=== PATIENT | male | born 1980 | race Caucasian/White ===

== ENCOUNTER 2017-12-01 14:35 | Emergency (ER) | payer SELFPAY ==
[~2017-12-01] VITALS: Ht 165.1 cm; Wt 78.0 kg
[~2017-12-01 14:35] MED LIST: ACHD5005 PO; CYCL10TA9 PO; HYDR1CAP2 PO; IBP800T PO; NAPR-243 PO; SULF1TAB38 PO
[2017-12-01] MEDS ORDERED: TETANUS,DIPTH,PERTUSS P/F (BOOSTRIX) 0.5 ML VIAL IM STA (15:06)
[2017-12-01] MEDS ORDERED: fentaNYL INJECTION 100 MCG/2 ML AMP IVP STA (15:06)
--- NOTE | 2017-12-01 15:10 | ED Head Injury ---
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 LACERATION TO UPPER LIP. FAMILY WAS TOLD HE WAS KNOCKED OUT. ON ADMIT TO ED ALERT ANSWER QUESTIONS WITHOUT PROBLEM History of Present Illness Date Seen by Provider: Dec 01, 2017 Time Seen by Provider: 15:00 Initial Comments 37-year-old male was playing baseball when he was hit in the left upper and lower lips. He denies losing consciousness but did fall forward secondary to the pain. He is able to recall all events from the time he was hit. He is alert and oriented complaining of a headache. He denies neck pain. He denies previous dental trauma. He does report feeling as though his left upper middle teeth are loose. Occurred: just prior to arrival Location: other (lips) Method of Injury: direct blow Loss of Consciousness: no loss of consciousness Associated Systoms: Headaches; No Nausea/Vomiting Allergies and Home Medications Allergies Coded Allergies: Bee Sting Kit (Verified Allergy, Mild, 12/26/08) Home Medications Cephalexin 500 Mg Capsule, 500 MG PO TID Prescribed by: JAMAL ROCHE on 12/01/17 1635 Hydrocodone Bit/Acetaminophen 1 Each Tablet, 1 EACH PO Q6H PRN Prescribed by: CAESAR DAVIS on 02/16/13 182 Tramadol HCl 50 Mg Tablet, 50 MG PO Q8H PRN for PAIN-MILD TO MODERATE Prescribed by: JAMAL ROCHE on 12/01/17 1635 Trimethoprim/Sulfamethoxazole 1 Ea Tablet, 1 EA PO BID Prescribed by: CAESAR DAVIS on 02/16/13 1827 Patient Home Medication List Home Medication List Reviewed: Yes Review of Systems Constitutional: no symptoms reported, see HPI Ears, Nose, Mouth, Throat: see HPI, loose teeth Respiratory: no symptoms reported, see HPI All Other Systems Reviewed Negative Unless Noted: Yes Past Hdzaxvl-Epzzqx-Ghyuoy Hx Past Med/Social Hx: Reviewed Nursing Past Med/Soc Hx Patient Social History Alcohol Use: Denies Use Recreational Drug Use: No Smoking Status: Current Everyday Smoker Recent Foreign Travel: No Contact w/Someone Who Travel: No Recent Infectious Disease Expo: No Immunizations Up To Date Tetanus Booster (TDap): Less than 5yrs Date of Influenza Vaccine: Feb 26, 2012 Past Medical History Surgeries: Yes Respiratory: No Cardiac: No Neurological: No Gastrointestinal: No Musculoskeletal: No Endocrine: No Cancer: No Integumentary: No Family Medical History No Pertinent Family Hx Physical Exam Vital Signs Vital Signs - First Documented 12/01/17 14:36 Temp 97.6 Pulse 96 Resp 18 B/P (MAP) 128/91 (103) Pulse Ox 98 Capillary Refill : Less Than 3 Seconds Height, Weight, BMI Height: 5', 5.00" Weight: 172lbs oz, 78.575722la Method:Stated ,BMI General Appearance: WD/WN, no apparent distress HEENT: PERRL/EOMI, normal ENT inspection, TMs normal, pharynx normal, other ( left upper and lower lip with lacerations noted, trace active bleeding. Left upper middle teeth slightly loose but intact.) Neck: non-tender, full range of motion, supple, normal inspection Cardiovascular: normal peripheral pulses, regular rate, rhythm Respiratory: chest non-tender, lungs clear, normal breath sounds Psychiatric: alert, oriented x 3, depressed affect Crainal Nerves: normal hearing, normal speech, PERRL Motor/Sensory: no motor deficit, no sensory deficit Skin: normal color, warm/dry Adrienne Coma Score Best Eye Response: (4) Open Spontaneously Best Verbal Response: (5) Oriented Best Motor Response: (6) Obeys Commands Casey Total: 15 Procedures/Interventions Wound Location: Other (left upper lip) Wound Length (cm): 4 Wound's Depth, Shape: flap Wound Explored: clean Irrigated w/ Saline (ccs): 500 Betadine Prep?: Yes Anesthesia: 1% Lidocaine Volume Anesthetic (ccs): 3 Suture: Vicryl Suture Size: 4-0 Number of Sutures: 3 Sterile Dressing Applied?: No Progress Patient encouraged to irrigate with a 50-50 mixture of peroxide and water several times a day and after eating or drinking. Progress/Results/Core Measures Results/Orders My Orders Orders - JAMAL ROCHE Pertuss(Arelis),Tet Adult (Boostrix (12/01/17 15:06) Fentanyl Injection (Sublimaze Injection (12/01/17 15:06) Ct Head/Maxillofacial Wo (12/01/17 15:06) Fentanyl Injection (Sublimaze Injection (12/01/17 15:11) Lidocaine 1% Inj 20 Ml (Xylocaine 1% Inj (12/01/17 16:15) Medications Given in ED Current Medications Medications Dose Ordered Sig/Arnel Route Start Time Stop Time Status Last Admin Dose Admin Lidocaine HCl 20 ml ONCE ONCE INJ 12/01/17 16:15 12/01/17 16:16 DC 12/01/17 16:27 20 ML Vital Signs/I&O 12/01/17 12/01/17 14:36 16:37 Temp 97.6 Pulse 96 93 Resp 18 18 B/P (MAP) 128/91 (103) 105/89 Pulse Ox 98 96 Blood Pressure Mean: 103 Progress Progress Note : Time: 15:00 Progress Note Initial assessment completed, no maxillary or mandible tenderness. No tenderness or instability at the TMJ. Recommended CT head and maxillofacial. Fentanyl 75 g IM for headache and pain. Tetanus booster. 1545 CT negative for acute findings. Irrigated wounds to left upper and lower lip with 500 ML's of sterile saline. Wounds well approximated. 1615 discharge instructions and return precautions reviewed with the patient. He understands importance of following up with his dentist early next week. Diagnostic Imaging Diagonstic Imaging: CT Plain Films/CT/US/NM/MRI: facial bones, head Comments NAME: JULI PERRY [facility] REC#: [id number] PT STATUS: REG ER : 1980 PHYSICIAN: JAMAL ROCHE ADMIT DATE: 12/01/17/ER Draft Date of Exam:12/01/17 CT HEAD/MAXILLOFACIAL WO PROCEDURE: CT head and maxillofacial without contrast. TECHNIQUE: Multiple contiguous axial images were obtained through the head and facial bones without the use of intravenous contrast. DATE: 12/01/2017. COMPARISON: CT head 09/13/2010. INDICATION: 37-year-old male, hit in left side of face with baseball. Headache. Swelling and laceration of the left upper lip. FINDINGS: The ventricles and cerebral spinal fluid spaces are of normal size and configuration for the patient's age. There is no mass effect or midline shift. There is no acute intracranial hemorrhage. There is no abnormal extra-axial fluid collection. The temporomandibular joints are normally aligned, bilaterally. The mandible is intact. There is no identified nasal bone fracture. The bony nasal septum is near midline. There is no air-fluid level within the paranasal sinuses. There is no identified acute maxillofacial bone fracture. The visualized portions of the mastoid air cells and middle ears are well aerated. There is pneumatization of the Yoandy apices. The globes are intact. There is no retro-orbital hematoma. There is soft tissue swelling at the level of the lips. There is no identified radiopaque foreign body. IMPRESSION: 1. No identified acute intracranial abnormality. 2. No maxillofacial bone fracture. 3. Soft tissue swelling at the level of the lips. No radiopaque foreign body. Dictated on workstation # [id number] Dict: 12/01/17 1553 Trans: 12/01/17 1558 [facility] [id number] Interpreted by: VANNA FUENTES MD Electronically signed by: Departure Impression Primary Impression: Lip laceration Qualified Codes: S01.511A - Laceration without foreign body of lip, initial encounter Additional Impression: Dental trauma Qualified Codes: S09.93XA - Unspecified injury of face, initial encounter Disposition: HOME, SELF-CARE Condition: Improved Departure-Patient Inst. Decision time for Depature: 16:15 Referrals: MARLEEN VALLE MD (PCP/Family) Primary Care Physician Patient Instructions: Dental Pain (DC), Laceration Repair With Stitches (DC) Add. Discharge Instructions: Ice packs to lip 20 minutes every 2 hours while awake. May eat liquid to soft foods as tolerated, try to keep food on the right side of your mouth. After eating or drinking, rinse her mouth with a combination of peroxide and water 50/50 dilution. Schedule appointment to see your dentist on Sunday or Sunday. Take antibiotic as prescribed. You may use Tylenol 650 mg alternating with ibuprofen 600 mg every 4 hours for pain. Take your tramadol for more severe pain not managed by Tylenol or ibuprofen. Follow-up with your primary care provider in 2-3 days if symptoms are not improving, sooner if symptoms worsen. Return to emergency department for new, urgent health care needs. All discharge instructions reviewed with patient and/or family. Voiced understanding. Scripts Tramadol HCl (Tramadol HCl) 50 Mg Tablet 50 MG PO Q8H PRN for PAIN-MILD TO MODERATE, #12 TAB 0 Refills Prov: JAMAL ROCHE 12/01/17 Cephalexin (Keflex) 500 Mg Capsule 500 MG PO TID, #21 CAP 0 Refills Prov: JAMAL ROCHE 12/01/17 Work/School Note: Work Release Form Date Seen in the Emergency Department: Dec 01, 2017 Restrictions: Need Release from Doctor Copy Copies To 1: MARLEEN VALLE MD, AMY ARNP Dec 01, 2017 15:10
[2017-12-01] MEDS ORDERED: fentaNYL INJECTION 100 MCG/2 ML AMP IM STA (15:11)
--- NOTE | 2017-12-01 15:59 | Diagnostic Imaging Report ---
PROCEDURE: CT head and maxillofacial without contrast. TECHNIQUE: Multiple contiguous axial images were obtained through the head and facial bones without the use of intravenous contrast. DATE: 12/01/2017. COMPARISON: CT head 09/13/2010. INDICATION: 37-year-old male, hit in left side of face with baseball. Headache. Swelling and laceration of the left upper lip. FINDINGS: The ventricles and cerebral spinal fluid spaces are of normal size and configuration for the patient's age. There is no mass effect or midline shift. There is no acute intracranial hemorrhage. There is no abnormal extra-axial fluid collection. The temporomandibular joints are normally aligned, bilaterally. The mandible is intact. There is no identified nasal bone fracture. The bony nasal septum is near midline. There is no air-fluid level within the paranasal sinuses. There is no identified acute maxillofacial bone fracture. The visualized portions of the mastoid air cells and middle ears are well aerated. There is pneumatization of the Yoandy apices. The globes are intact. There is no retro-orbital hematoma. There is soft tissue swelling at the level of the lips. There is no identified radiopaque foreign body. IMPRESSION: 1. No identified acute intracranial abnormality. 2. No maxillofacial bone fracture. 3. Soft tissue swelling at the level of the lips. No radiopaque foreign body. Dictated by: Dictated on workstation # [id number]
[2017-12-01] MEDS ORDERED: LIDOCAINE 1% INJ 20 ML 20 ML VIAL INJ ONE (16:15)
[2017-12-01] MEDS ORDERED: CEPH-507 PO (16:35)
[2017-12-01] MEDS ORDERED: TRAM50TA2 PO (16:35)
[2017-12-01 16:37] VITALS: BP 105/89
== END 2017-12-01 16:54 | disposition home or self-care (01) ==
LOC: EDUNIT# 14:35 → ER 14:36
DX: S01.511A Laceration without foreign body of lip, initial encounter (principal); R40.2142 Coma scale, eyes open, spontaneous, at arrival to emergency department; R40.2252 Coma scale, best verbal response, oriented, at arrival to emergency department; R40.2362 Coma scale, best motor response, obeys commands, at arrival to emergency department; F17.200 Nicotine dependence, unspecified, uncomplicated; Z23 Encounter for immunization; W21.03XA Struck by baseball, initial encounter; Y93.64 Activity, baseball
CPT/HCPCS: 70450; 70486; 90471; 90715; 96372

== ENCOUNTER 2018-09-11 05:07 | Emergency (ER) | payer SELFPAY ==
[~2018-09-11 05:07] MED LIST changes: +CEPH-507 PO; +TRAM50TA2 PO
--- OUTSIDE RECORDS SUMMARY | 2018-09-11 05:14 | XMS REPORT ---
Author Author MARLEEN SON [facility] Address [address] [place] [address] Care Team Providers Care Client Finance Analyst Name Role Phone MARLEEN SON Unavailable PROBLEMS Type Condition ICD9-CM Code SAR69-KD Code Onset Dates Condition Status SNOMED Code Problem Lipoma of other specified sites 214.8 Active 96815053 Problem Cellulitis and abscess of trunk 682.2 Active 404055903 Problem Encounter for change or removal of nonsurgical wound dressing V58.30 Active 907403619 Problem Encounter for change or removal of surgical wound dressing V58.31 Active 50434077 ALLERGIES No Known Allergies ENCOUNTERS Encounter Location Date Diagnosis [place] [id number] [place] [phone] Jan, Encounter for immunization Z23 [facility] [address] [place] [phone] Dec, [facility] [address] [place] [address] Dec, [facility] [address] [place] [address] Nov, Dental examination Z01.20 [facility] [address] [place] [phone] Nov, [place] [id number] [place] [phone] Nov, [place] [id number] [place] [address] 5361 Nov, Dental examination Z01.20 [place] [address] [place] [id number] [place] [address] 79[address] Oct, Abscess of groin, left L02.214 [place] [id number] [place] [address]3689- 3450 Oct, [facility] [id number] [place] [address]21[address] 5169 Aug, [facility] [id number] [place] [address] 60886- 6400 Jun, [facility] [id number] [place] [address] 57689- 6667 Jun, [facility] [address] [address] Mar, Acute midline thoracic back pain M54.6 [facility] [address] [address] Mar, [facility] [address] [id number] Mar, [facility] [address] [id number] Feb, Encounter for dental exam and cleaning w/o abnormal findings Z01.20 [facility] [address] [id number] Feb, Encounter for dental examination Z01.20 [facility] [id number] [place] [address] 85[address] Feb, Bronchitis J40 [facility] [id number] [place] [address]- 6[address] Feb, Bronchitis J40 [facility] [id number] [place] [address] 25053- 5407 Aug, [facility] [id number] [place] [phone] Aug, Fever, unspecified fever cause R50.9 and Acute nasopharyngitis (common cold) J00 [facility] [id number] [place] [address] 78435- 8849 Aug, [facility] [address] [address] Apr, Dental examination Z01.20 [facility] [id number] [place] [address] 93726- 5321 Mar, [facility] [address] [place] [id number] [place] [address] 99060- 6462 Nov, [facility] [address] [facility] [id number] [place] [address] 70369- 4568 Nov, Sebaceous cyst L72.3 [facility] [address] [facility] [id number] [place] [address] 72655- 3978 Nov, [facility] [id number] [place] [address] 32152- 3312 Oct, [facility] [id number] [place] [address] 27394- 9226 Jul, [facility] [id number] [place] [address] 08027- 7660 Jun, [facility] [id number] [place] [address] 11843- 3332 Jun, [facility] [id number] [place] [address] 76630- 6491 May, [facility] [id number] [place] [address] 56624- 2158 Mar, [facility] [address] [place] [address] Jan, Dental examination V72.2 [facility] [id number] [place] [address] 36646- 3857 Jan, [facility] [id number] [place] [address] 49459- 9105 Jan, [facility] [address] [place] [address] Dec, [facility] [id number] [place] [address] 33049- 9359 Dec, Lumbar neuritis 724.4 [facility] [address] [place] [address] Dec, Lumbar radicular pain 724.4 [facility] [address] [place] [address] Aug, [facility] [address] [place] [address] Aug, [facility] [address] [place] [address] Apr, [facility] [id number] [place] [address] 21149- 1394 Apr, [facility] [id number] [place] [address] 69241- 5912 Aug, [facility] [id number] [place] [address] 68446- 0377 Aug, [facility] [address] [place] [address] Jan, [facility] [id number] [address] Jan, [facility] [address] [place] [address] Jul, [facility] [address] [place] [address] Jul, IMMUNIZATIONS No Known Immunizations SOCIAL HISTORY Never Assessed REASON FOR VISIT [facility] PLAN OF CARE Activity Details Follow Up to be determined. going to [facility] for implant consult. Reason: VITAL SIGNS MEDICATIONS Medication Instructions Dosage Frequency Start Date End Date Duration Status ibuprofen 1 tab Not-Taking Morris 5-325 MG Orally every 6 hrs 1 tablet as needed 6h Aug, Not-Taking Cyclobenzaprine HCl 10 mg Orally 2 times a day 1 tablet as needed 12h 20 Mar, 2017 Not-Taking PredniSONE Not-Taking Chantix 1 MG Orally Twice a day 1 tablet 12h 30 Mar, 2015 Not-Taking Amoxicillin 500 MG Orally 4 times a day 2 capsules stat and then take 1 capsule 6h 10 days Active Zofran 4 MG Orally 3 times a day 1 tablet 8h Jun, Not-Taking RESULTS No Results PROCEDURES Procedure Date Ordered Result Body Site LTD ORAL EVALUATION - PROBLEM FOCUS December 25, 2017 INTRAORL-PERIAPICAL 1 FILM [id number] December 25, 2017 Billing Notes on claim December 25, 2017 [employer] Employee/Board adjustment December 25, 2017 INSTRUCTIONS MEDICATIONS ADMINISTERED No Known Medications MEDICAL (GENERAL) HISTORY Type Description Date Medical History SI joint disfunction Medical History Bronchitis Surgical History eye surgery at 8 months old
--- OUTSIDE RECORDS SUMMARY | 2018-09-11 05:14 | XMS REPORT ---
Author Author TATIANA NUÑEZ Organization [facility] Address [address] [place] [address] Care Team Providers Care Logging Crew Foreman Name Role Phone TATIANA NUÑEZ Unavailable PROBLEMS Type Condition ICD9-CM Code VDQ68-WF Code Onset Dates Condition Status SNOMED Code Problem Lipoma of other specified sites 214.8 Active 08165130 Problem Cellulitis and abscess of trunk 682.2 Active 974742048 Problem Encounter for change or removal of nonsurgical wound dressing V58.30 Active 015239096 Problem Encounter for change or removal of surgical wound dressing V58.31 Active 90686424 ALLERGIES No Information ENCOUNTERS Encounter Location Date Diagnosis [place] [id number] [place] [address]180- 8013 Jan, Encounter for immunization Z23 [address] [place] [address] Dec, [address] [place] [address] Dec, [address] [address] Nov, Dental examination Z01.[address] [place] [address] Nov, [place] [id number] [place] [address] 25141- 8795 Nov, [place] [id number] [place] [address] 27039- 7270 Nov, Dental examination Z01.20 [place] [address] [place] [id number] [place] [address] 84460- 2355 Oct, Abscess of groin, left L02.214 [address] [place] [address] 73376- 2585 Oct, [facility] [address] [place] [id number] [place] [address] 99725- 5810 Aug, [facility] [address] 35337- 7100 Jun, [facility] [address] [place] [id number] [place] [address] 65833- 0984 Jun, [facility] [address] [address] Mar, Acute midline thoracic back pain M54.6 [facility] [address] 20077- 9308 Mar, [facility] [address] [id number] Mar, [facility] [address] [id number] Feb, Encounter for dental exam and cleaning w/o abnormal findings Z01.20 [facility] [address] [place] [id number] [place] [address] [id number] Feb, Encounter for dental examination Z01.20 [facility] [address] [place] [id number] [place] [address] 49577- 3972 Feb, Bronchitis J40 [facility] [address] [place] [id number] [place] [address] 62848- 9935 Feb, Bronchitis J40 [facility] [address] [place] [id number] [place] [address] 93442- 6630 Aug, [facility] [address] [place] [id number] [place] [address] 99511 -8758 Aug, Fever, unspecified fever cause R50.9 and Acute nasopharyngitis (common cold) J00 [facility] [address] [place] [id number] [place] [address] 67633- 3265 Aug, [facility] [address] 03967- 6883 Apr, Dental examination Z01.20 [facility] [address] [address] 9199 Mar, [facility] [address] [place] [address] 67341- 5642 Nov, [facility] [address] [place] [id number] [place] [address] 99003- 8510 Nov, Sebaceous cyst L72.3 [facility] [address] [place] [id number] [place] [address] 14837- 3920 Nov, [facility] [address] [place] [id number] [place] [address] 73766- 1228 Oct, [facility] [address] [place] [id number] [place] [address] 39000- 2020 Jul, [facility] [address] [place] [id number] [place] [address] 09371- 7044 Jun, [facility] [address] [place] [id number] [place] [address] 24263- 9606 Jun, [facility] [address] [place] [id number] [place] [address] 17012- 2636 May, [facility] [address] [place] [id number] [place] [address] 98757- 3382 Mar, [facility] [address] [place] [address] Jan, Dental examination V72.2 [facility] [address] [address]- 1372 Jan, [facility] [address] [place] [id number] [place] [address] 86891- 7004 Jan, [facility] [address] [place] [address] 93317- 2434 Dec, [facility] [address] [place] [address] 67471- 7239 Dec, Lumbar neuritis 724.4 [facility] [address] [address]- 4142 Dec, Lumbar radicular pain 724.4 [facility] [address] [facility] [id number] [address]- 2414 14 Aug, 2014 [facility] [address] 6857 Aug, [facility] [address] [address]- 7104 Apr, [facility] [address] 7920 Apr, [facility] [address] [address]- 1278 Aug, [facility] [address] 5219 Aug, [facility] [address], [place] [address]- 5744 Jan, [facility] [address]- 0371 Jan, [facility] [address]- 7530 Jul, [facility] [address] [place] [id number] [address]- 4306 Jul, IMMUNIZATIONS Vaccine Route Administration Date Status FLULAVAL QUAD 0.5ML (6 MO & UP) 2017 IM Intramuscular Feb 22, 2018 Administered SOCIAL HISTORY Never Assessed REASON FOR VISIT flu shot PLAN OF CARE VITAL SIGNS MEDICATIONS Unknown Medications RESULTS No Results PROCEDURES Procedure Date Ordered Result Body Site FLULAVAL QUAD 0.5ML (6 MO AND UP) 2017Feb 22, 2018 SINGLE IMMUNIZATION ADMIN Feb 22, 2018 INSTRUCTIONS MEDICATIONS ADMINISTERED No Known Medications MEDICAL (GENERAL) HISTORY Type Description Date Medical History SI joint disfunction Medical History Bronchitis Surgical History eye surgery at 8 months old
--- OUTSIDE RECORDS SUMMARY | 2018-09-11 05:14 | XMS REPORT ---
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 [address] [place] [address] Dec, [address] [place] [address] Dec, [address] [address] Nov, Dental examination Z01.[address] [address] Nov, [place] [address] [place] [id number] [place] [address] 16383- 1989 Nov, [place] [id number] [place] [address] 48347- 9518 Nov, Dental examination Z01.20 [place] [address] [place] [id number] [place] [address] 24792- 5323 Oct, Abscess of groin, left L02.214 [place] [id number] [place] [address] 37035- 3826 Oct, [facility] [address] [place] [id number] [place] [address] 68853- 1747 Aug, [facility] [address] [place] [id number] [place] [address] 82796- 9547 Jun, [facility] [address] [place] [id number] [place] [address] 13381- 0749 Jun, [facility] [address] [address]2897 Mar, Acute midline thoracic back pain M54.6 [facility] [address] 04456- 6901 Mar, [facility] [address] [id number] Mar, [facility] [address] [id number] Feb, Encounter for dental exam and cleaning w/o abnormal findings Z01.20 [facility] [address] [place] [id number] [place] [address] [id number] Feb, Encounter for dental examination Z01.20 [facility] [address] [place] [id number] [place] [address] 44374- 3706 Feb, Bronchitis J40 [facility] [address] [place] [id number] [place] [address] 12233- 0015 Feb, Bronchitis J40 [facility] [address] [place] [id number] [place] [address] 00640- 4792 Aug, [facility] [address] [place] [id number] [place] [address] 52903 -9506 Aug, Fever, unspecified fever cause R50.9 and Acute nasopharyngitis (common cold) J00 [facility] [address] [place] [id number] [place] [address] 63982- 7297 Aug, [facility] [address] [place] [address]- 6473 Apr, Dental examination Z01.20 [facility] [address] [place] [id number] [place] [address] 03893- 4321 Mar, [facility] [address] [place] [id number] [place] [address] 82550- 0536 Nov, [facility] [address] [place] [id number] [place] [address] 55693- 9828 Nov, Sebaceous cyst L72.3 [facility] [address] [facility] [id number] [place] [address] 80992- 7924 Nov, [facility] [address] [place] [id number] [place] [address] 95945- 8611 Oct, [facility] [address] [place] [id number] [place] [address] 92122- 8385 Jul, [facility] [address] [place] [id number] [place] [address] 48237- 9955 Jun, [facility] [address] [place] [address] 61269- 1254 Jun, [facility] [address] [place] [id number] [place] [address] 62895- 4971 May, [facility] [address] [place] [address] 93482- 4378 Mar, [facility] [address] [place] [address] Jan, Dental examination V72.2 [facility] [address], [place] [address]- 3743 Jan, [facility] [address] [place] [id number] [place] [address] 36040- 0557 Jan, [facility] [address], [place] [address]- 3057 Dec, [facility] [address] [place] [id number] [place] [address] 13269- 1772 Dec, Lumbar neuritis 724.4 [facility] [address], [place] [address]- 1575 Dec, Lumbar radicular pain 724.4 [facility] [address], [place] [address]- 1132 14 Aug, 2014 [facility] [address] [place] [id number] [place] [address] 28931- 2267 Aug, [facility] [address] [place] [address] 43051- 7973 Apr, [facility] [address] [place] [id number] [place] [address] 53801- 8324 Apr, [facility] [address], [place] [address]- 7263 Aug, [facility] [address] [place] [id number] [place] [address] 02703- 9868 Aug, [facility] [address], [place] [address]- 7730 Jan, [facility] [address] [place] [address] 30255- 8487 Jan, [facility] [address], [place] [address]- 1329 Jul, [facility] [address], [place] [address]- 2605 Jul, IMMUNIZATIONS No Known Immunizations SOCIAL HISTORY Never Assessed REASON FOR VISIT EMR-[facility] PLAN OF CARE VITAL SIGNS MEDICATIONS Medication Instructions Dosage Frequency Start Date End Date Duration Status Bactrim DS 800-160 mg 1 tablet by Oral route 2 times per day for 10 day(s) Apr, Active RESULTS No Results PROCEDURES No Known procedures INSTRUCTIONS MEDICATIONS ADMINISTERED No Known Medications MEDICAL (GENERAL) HISTORY Type Description Date Medical History SI joint disfunction Medical History Bronchitis Surgical History eye surgery at 8 months old
--- OUTSIDE RECORDS SUMMARY | 2018-09-11 05:14 | XMS REPORT ---
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 28301949 Problem Cellulitis and abscess of trunk 682.2 Active 331409470 Problem Encounter for change or removal of nonsurgical wound dressing V58.30 Active 988750579 Problem Encounter for change or removal of surgical wound dressing V58.31 Active 43680387 ALLERGIES No Information ENCOUNTERS Encounter Location Date Diagnosis [address] [address]- 6311 Mar, [place] [id number] [place] [address] 81062- 7348 Jan, Encounter for immunization Z23 [facility] [address] [place] [address] Dec, [address] [address] Dec, [address] [address] Nov, Dental examination Z01.[address] [address] Nov, [place] [id number] [place] [address] 56178- 0732 Nov, [place] [id number] [place] [address] 27310- 9774 Nov, Dental examination Z01.20 [place] [id number] [place] [address] 66919- 1761 Oct, Abscess of groin, left L02.214 [facility] [address] [place] [id number] [place] [address] 37218- 9295 Oct, [facility] [address] 57954- 8189 Aug, [facility] [address] 33726- 2072 Jun, [facility] [address] 46240- 5963 Jun, [facility] [address] 59046 -5063 Mar, Acute midline thoracic back pain M54.6 [place] [address] 28540- 3131 Mar, [facility] [address] [id number] Mar, [facility] [address] [id number] Feb, Encounter for dental exam and cleaning w/o abnormal findings Z01.20 [facility] [address] [id number] Feb, Encounter for dental examination Z01.20 [facility] [address] [place] [id number] [place] [address] 60257- 5981 Feb, Bronchitis J40 [facility] [address] 49999- 7277 Feb, Bronchitis J40 [facility] [address] [place] [id number] [place] [address] 15766- 9539 Aug, [facility] [address] [place] [id number] [place] [address] 76798 -1311 Aug, Fever, unspecified fever cause R50.9 and Acute nasopharyngitis (common cold) J00 [facility] [address] 78878- 0290 Aug, [facility] [address], [place] [address]- 1520 Apr, Dental examination Z01.20 [facility] [address] [place] [address] 15360- 8956 Mar, [facility] [address] [place] [address] 35906- 2042 Nov, [facility] [address] [place] [id number] [place] [address] 14737- 5799 Nov, Sebaceous cyst L72.3 [facility] [address] [place] [id number] [place] [address] 92183- 0212 Nov, [facility] [address] [place] [id number] [place] [address] 96553- 2036 Oct, [facility] [address] [place] [id number] [place] [address] 90879- 6073 Jul, [facility] [address] [place] [address] 79969- 4834 Jun, [facility] [address] [place] [id number] [place] [address] 23176- 1316 Jun, [facility] [address] [place] [address] 79303- 7094 May, [facility] [address] [place] [address] 58109- 7655 Mar, [facility] [address] [facility] [place] [address] Jan, Dental examination V72.2 [facility] [address] [place] [id number] [place] [address] 67655- 5610 Jan, [facility] [address] [place] [address] 88994- 9562 Jan, [facility] [address] [place] [address] 82614- 9188 Dec, [facility] [address], [place] [address]- 1565 Dec, Lumbar neuritis 724.4 [facility] [address], [place] [address]- 0528 Dec, Lumbar radicular pain 724.4 [facility] [address], [place] [address]- 6929 Aug, [facility] [address] [address]- 9133 Aug, [facility] [id number] [place] [address] 54855- 2867 Apr, [facility] [address] [place] [address] 73945- 5021 Apr, [facility] [address] [place] [id number] [place] [address] 13876- 5870 Aug, [facility] [address] [place] [address] 697232- 6013 Aug, [facility] [address] [place] [address] 859832- 5858 Jan, [facility] [address], [place] [address]- 1571 Jan, [facility] [address] 7064 Jul, [facility] [address]- 0659 Jul, IMMUNIZATIONS No Known Immunizations SOCIAL HISTORY Never Assessed REASON FOR VISIT bronchitis PLAN OF CARE VITAL SIGNS MEDICATIONS Medication Instructions Dosage Frequency Start Date End Date Duration Status PredniSONE 20 mg Orally Once a day 2 tablets 24h Mar, Mar, 5 days Active Zithromax Z-Enrrique 250 MG Orally Once a day 2 tablets on the first day, then 1 tablet daily for 4 days 24h Mar, Mar, 5 day(s) Active RESULTS No Results PROCEDURES No Known procedures INSTRUCTIONS MEDICATIONS ADMINISTERED No Known Medications MEDICAL (GENERAL) HISTORY Type Description Date Medical History SI joint disfunction Medical History Bronchitis Surgical History eye surgery at 8 months old
--- OUTSIDE RECORDS SUMMARY | 2018-09-11 05:15 | XMS REPORT ---
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 90802338 Problem Cellulitis and abscess of trunk 682.2 Active 619524360 Problem Encounter for change or removal of nonsurgical wound dressing V58.30 Active 236538712 Problem Encounter for change or removal of surgical wound dressing V58.31 Active [id number] ALLERGIES No Information ENCOUNTERS Encounter Location Date Diagnosis [facility] [address] [place] [address] Dec, [facility] [address] [place] [address] Dec, [address] [place] [address] Nov, Dental examination Z01.[address] [place] [address] Nov, [place] [address] [place] [address] 80733- 1377 Nov, [place] [address] [place] [id number] [place] [address] 70090- 5772 Nov, Dental examination Z01.20 [place] [address] [place] [address] 20748- 4977 Oct, Abscess of groin, left L02.214 [place] [address] [place] [address] 60444- 4213 Oct, [place] [address] [place] [address] 22392- 0884 Aug, [facility] [address] [place] [address] 56913- 5672 Jun, [facility] [id number] [place] [address] 36181- 6481 Jun, [facility] [id number] [place] [address]34 -5844 Mar, Acute midline thoracic back pain M54.6 [facility] [id number] [place] [address] 06490- 2365 Mar, [facility] [address] [place] [id number] [place] [address] [id number] Mar, [facility] [address] [id number] Feb, Encounter for dental exam and cleaning w/o abnormal findings Z01.20 [facility] [address] [id number] Feb, Encounter for dental examination Z01.20 [facility] [id number] [place] [address] 75948- 9087 Feb, Bronchitis J40 [facility] [id number] [place] [address] 25857- 9297 Feb, Bronchitis J40 [facility] [id number] [place] [address] 83764- 7559 Aug, [facility] [id number] [place] [address]49 -0667 Aug, Fever, unspecified fever cause R50.9 and Acute nasopharyngitis (common cold) J00 [facility] [id number] [place] [address] 19653- 0891 Aug, [facility] [id number] [place] [address] 82454- 0842 Apr, Dental examination Z01.20 [facility] [address] [address]- 1240 Mar, [facility] [address] [place] [address] 23677- 5347 Nov, [facility] [address] [place] [address] 55925- 9613 Nov, Sebaceous cyst L72.3 [facility] [id number] [place] [address] 38185- 7482 Nov, [facility] [id number] [place] [address] 80318- 9166 Oct, [facility] [id number] [place] [address] 68466- 6295 Jul, [facility] [id number] [place] [address] 51076- 4356 Jun, [facility] [id number] [place] [address] 86885- 4249 Jun, [facility] [address] [place] [address] 71733- 8006 May, [facility] [id number] [place] [address] 31354- 2675 Mar, [facility] [address] [place] [address] 24 Jan, 2015 Dental examination V72.2 [facility] [address] [place] [address] 05980- 4710 Jan, [facility] [address] [place] [address] 72365- 6977 Jan, [facility] [id number] [place] [address] 57097- 1135 Dec, [facility] [id number] [place] [address] 74369- 6426 Dec, Lumbar neuritis 724.4 [facility] [address] [place] [address] 49540- 5338 Dec, Lumbar radicular pain 724.4 [facility] [address] [address] 3[address] Aug, [facility] [address] [address]- 9450 Aug, [facility] [address] [address]- 2584 Apr, [facility] [address] [address]- 6165 Apr, [facility] [address] [address]- 6177 Aug, [facility] [address] [address]- 3656 Aug, [facility] [address] [address]- 0904 Jan, [facility] [address] [address]- 3383 Jan, [facility] [address] [address]- 0842 Jul, [facility] [address] [place] [id number] [address]- 8647 Jul, IMMUNIZATIONS No Known Immunizations SOCIAL HISTORY Never Assessed REASON FOR VISIT PLAN OF CARE VITAL SIGNS MEDICATIONS Medication Instructions Dosage Frequency Start Date End Date Duration Status Amoxicillin 500 MG Orally 4 times a day 2 capsules stat and then take 1 capsule 6h 10 days Active RESULTS No Results PROCEDURES No Known procedures INSTRUCTIONS MEDICATIONS ADMINISTERED No Known Medications MEDICAL (GENERAL) HISTORY Type Description Date Medical History SI joint disfunction Medical History Bronchitis Surgical History eye surgery at 8 months old
--- OUTSIDE RECORDS SUMMARY | 2018-09-11 05:15 | XMS REPORT ---
Author Author TATIANA NUÑEZ Organization 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 81475232 Problem Cellulitis and abscess of trunk 682.2 Active 364083296 Problem Encounter for change or removal of nonsurgical wound dressing V58.30 Active 872411061 Problem Encounter for change or removal of surgical wound dressing V58.31 Active [id number] ALLERGIES No Known Allergies ENCOUNTERS Encounter Location Date Diagnosis [facility] [address] [place] [address] Dec, [facility] [address] [place] [address] Dec, [address] [place] [address] Nov, Dental examination Z01.[address] [place] [address] Nov, [place] [id number] [place] [address] 21710- 9726 Nov, [place] [id number] [place] [address] 43576- 6288 Nov, Dental examination Z01.20 [place] [id number] [place] [address] 65384- 7799 Oct, Abscess of groin, left L02.214 [place] [id number] [place] [address] 53682- 3341 Oct, [address] [place] [address] 58916- 7136 Aug, [place] [address] [place] [id number] [place] [address] 48797- 6089 Jun, [facility] [address] 75227- 8436 Jun, [facility] [id number] [place] [address] 90216 -4717 Mar, Acute midline thoracic back pain M54.6 [facility] [address] 05249- 1096 Mar, [facility] [address] [id number] Mar, [facility] [address] [id number] Feb, Encounter for dental exam and cleaning w/o abnormal findings Z01.20 [facility] [address] [id number] Feb, Encounter for dental examination Z01.20 [facility] [address] [id number] [place] [address] 80227- 0767 Feb, Bronchitis J40 [facility] [address] 07783- 1491 Feb, Bronchitis J40 [facility] [address] 31185- 2018 Aug, [facility] [address] [id number] [place] [address] 24846 -4960 Aug, Fever, unspecified fever cause R50.9 and Acute nasopharyngitis (common cold) J00 [facility] [address] [address]1511- 1714 Aug, [facility] [address] 15563- 5452 Apr, Dental examination Z01.20 [facility] [address] 53523- 9107 Mar, [facility] [id number] [place] [address] 47264- 2829 Nov, [facility] [address] [id number] [place] [address] 39250- 5533 Nov, Sebaceous cyst L72.3 [facility] [address] [id number] [place] [address] 18369- 0192 Nov, [facility] [id number] [place] [address] 66984- 9294 Oct, [facility] [id number] [place] [address] 80136- 9268 Jul, [facility] [id number] [place] [address] 63430- [address]374 Jun, [facility] [address] [id number] [place] [address] 46421- 4309 Jun, [facility] [address] [id number] [place] [address] 03824- 6414 May, [facility] [id number] [place] [address] 85342- 7062 Mar, [facility] [address] [place] [address] Jan, Dental examination V72.2 [facility] [address] [id number] [place] [address] 32259- 1952 Jan, [facility] [address] [id number] [place] [address] 42859- 2330 Jan, [facility] [id number] [place] [address] 85703- 4079 Dec, [facility] [id number] [place] [address] 53678- 1593 Dec, Lumbar neuritis 724.4 [facility] [id number] [place] [address] 37977- 9289 Dec, Lumbar radicular pain 724.4 [facility] [address], [place] [address]- 7424 Aug, [facility] [id number], [place] [address]- 9768 Aug, [facility] [address], [place] [address]- 6757 Apr, [facility] [address], [place] [address]- 5706 Apr, [facility] [address], [place] [address]- 9791 Aug, [facility] [address] [address] [id number], [place] [address]- 2480 Aug, [facility] [address], [place] [address]- 0225 Jan, [facility] [address], [place] [address]- 3354 Jan, [facility] [address], [place] [address]- 8412 Jul, [facility] [address], [place] [address]- 6646 Jul, IMMUNIZATIONS No Known Immunizations SOCIAL HISTORY Never Assessed REASON FOR VISIT abx PLAN OF CARE VITAL SIGNS MEDICATIONS Medication Instructions Dosage Frequency Start Date End Date Duration Status Keflex 500 MG Orally 4 times a day 1 capsule 6h Nov, Nov, 10 day(s) Active RESULTS No Results PROCEDURES No Known procedures INSTRUCTIONS MEDICATIONS ADMINISTERED No Known Medications MEDICAL (GENERAL) HISTORY Type Description Date Medical History SI joint disfunction Medical History Bronchitis Surgical History eye surgery at 8 months old
--- OUTSIDE RECORDS SUMMARY | 2018-09-11 05:15 | XMS REPORT ---
Author Author TATIANA NUÑEZ Organization 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 42971165 Problem Cellulitis and abscess of trunk 682.2 Active 925971110 Problem Encounter for change or removal of nonsurgical wound dressing V58.30 Active 637002310 Problem Encounter for change or removal of surgical wound dressing V58.31 Active [id number] ALLERGIES No Information ENCOUNTERS Encounter Location Date Diagnosis [facility] [address] [place] [address] Dec, [facility] [address] [place] [address] Dec, [address] [place] [address] Nov, Dental examination Z01.[address] [address] Nov, [place] [address] [place] [address] 71521- 0204 Nov, [place] [id number] [place] [address] 32504- 8977 Nov, Dental examination Z01.20 [place] [id number] [place] [address] 97353- 0542 Oct, Abscess of groin, left L02.214 [place] [id number] [place] [address] 35630- 7844 Oct, [place] [address] [place] [id number] [place] [address] 12288- 7166 Aug, [place] [address] [place] [id number] [place] [address] 34936- 9864 Jun, [facility] [address] 37418- 7010 Jun, [facility] [address] [place] [id number] [place] [address] 77085 -7669 Mar, Acute midline thoracic back pain M54.6 [facility] [address] 80328- 6885 Mar, [facility] [address] [id number] Mar, [facility] [address] [id number] Feb, Encounter for dental exam and cleaning w/o abnormal findings Z01.20 [facility] [address] [id number] Feb, Encounter for dental examination Z01.20 [facility] [address] [id number] [place] [address] 82153- 4877 Feb, Bronchitis J40 [facility] [address] 80543- 3110 Feb, Bronchitis J40 [facility] [address] 63202- 8380 Aug, [facility] [address] [place] [address] [id number] [place] [address] 23886 -4308 Aug, Fever, unspecified fever cause R50.9 and Acute nasopharyngitis (common cold) J00 [facility] [address] [address]60- 0438 Aug, [facility] [address] 11188- 3888 Apr, Dental examination Z01.20 [facility] [address] 59447- 3673 Mar, [facility] [address] [place] [address] 39679- 2610 Nov, [facility] [address] [id number] [place] [address] 53858- 7718 Nov, Sebaceous cyst L72.3 [facility] [address] [id number] [place] [address] 83652- 8822 Nov, [facility] [id number] [place] [address] 43404- 0183 Oct, [facility] [id number] [place] [address] 71034- 8371 Jul, [facility] [id number] [place] [address] 96880- 8812 Jun, [facility] [id number] [place] [address] 50784- 2446 Jun, [facility] [address] [id number] [place] [address] 71210- 9726 May, [facility] [address] [id number] [place] [address] 67272- 0385 Mar, [facility] [address] [place] [address] Jan, Dental examination V72.2 [facility] [id number] [place] [address] 10142- 9567 Jan, [facility] [id number] [place] [address] 17112- 5680 Jan, [facility] [id number] [place] [address] 66657- 0122 Dec, [facility] [id number] [place] [address] 61317- 5286 Dec, Lumbar neuritis 724.4 [facility] [id number] [place] [address] 18782- 5962 Dec, Lumbar radicular pain 724.4 [facility] [address] [address] Aug, [facility] [id number] Aug, [facility] [address], [place] [address]- 3186 Apr, [facility] [address], [place] [address]- 7591 Apr, [facility] [address] [address] 2941 Aug, [facility] [address]274 Aug, [facility] [address]65 Jan, [facility] [address] [address] 9499 Jan, [facility] [address], [place] [address]- 7438 Jul, [facility] [id number] [address]- 7663 Jul, IMMUNIZATIONS No Known Immunizations SOCIAL HISTORY Never Assessed REASON FOR VISIT infected bug bite PLAN OF CARE VITAL SIGNS MEDICATIONS Medication Instructions Dosage Frequency Start Date End Date Duration Status Doxycycline Hyclate 100 mg Orally Twice a day 1 capsule 12h Oct, Oct, 10 days Active RESULTS No Results PROCEDURES No Known procedures INSTRUCTIONS MEDICATIONS ADMINISTERED No Known Medications MEDICAL (GENERAL) HISTORY Type Description Date Medical History SI joint disfunction Medical History Bronchitis Surgical History eye surgery at 8 months old
--- OUTSIDE RECORDS SUMMARY | 2018-09-11 05:15 | XMS REPORT ---
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 73994525 Problem Cellulitis and abscess of trunk 682.2 Active 310850140 Problem Encounter for change or removal of nonsurgical wound dressing V58.30 Active 795925679 Problem Encounter for change or removal of surgical wound dressing V58.31 Active [id number] ALLERGIES No Known Allergies ENCOUNTERS Encounter Location Date Diagnosis [facility] [address] [place] [address] Dec, [facility] [address] [place] [address] Dec, [address] [place] [address] Nov, Dental examination Z01.[address] [place] [address] Nov, [place] [id number] [place] [address]141- 9941 Nov, [place] [id number] [place] [address] 13174- 2166 Nov, Dental examination Z01.20 [place] [id number] [place] [address] 02693- 4857 Oct, Abscess of groin, left L02.214 [place] [id number] [place] [address] 26165- 4178 Oct, [address] [place] [address] 35507- 5052 Aug, [place] [address] [place] [id number] [place] [address] 18726- 8163 Jun, [facility] [address] [address]26- 2644 Jun, [facility] [address] [place] [id number] [place] [address]9526 -0893 Mar, Acute midline thoracic back pain M54.6 [facility] [address] 21745- 5999 Mar, [facility] [address] [id number] Mar, [facility] [address] [id number] Feb, Encounter for dental exam and cleaning w/o abnormal findings Z01.20 [facility] [address] [id number] Feb, Encounter for dental examination Z01.20 [facility] [address] [place] [id number] [place] [address] 76849- 5923 Feb, Bronchitis J40 [facility] [address] 41990- 1442 Feb, Bronchitis J40 [facility] [address] 00353- 6521 Aug, [facility] [address] [place] [address] [id number] [place] [address] 90597 -5174 Aug, Fever, unspecified fever cause R50.9 and Acute nasopharyngitis (common cold) J00 [facility] [address] 93708- 5050 Aug, [facility] [address] 12743- 6116 Apr, Dental examination Z01.20 [facility] [address] 03016- 8546 Mar, [facility] [address] [place] [address] 72516- 7724 Nov, [facility] [address] [place] [id number] [place] [address] 59946- 0281 Nov, Sebaceous cyst L72.3 [facility] [address] [place] [address] [id number] [place] [address] 51319- 2053 Nov, [facility] [address] [place] [address] [id number] [place] [address] 40449- 4411 Oct, [facility] [address] [place] [address] [id number] [place] [address] 51544- 6479 Jul, [facility] [address] [place] [address] [id number] [place] [address] 55836- 2943 Jun, [facility] [address] [address] [id number] [place] [address] 91731- 3504 Jun, [facility] [address] [address] [id number] [place] [address] 99487- 1805 May, [facility] [address] [place] [address] [id number] [place] [address] 71715- 0295 Mar, [facility] [address] [place] [address] Jan, Dental examination V72.2 [facility] [address] [place] [address] [id number] [place] [address] 13923- 4950 Jan, [facility] [address] [address] [id number] [place] [address] 48350- 4689 Jan, [facility] [address] [address] [id number] [place] [address] 53218- 9188 Dec, [facility] [address] [place] [address] [id number] [place] [address] 60709- 8334 Dec, Lumbar neuritis 724.4 [facility] [address] [place] [address] [id number] [place] [address] 98777- 9693 Dec, Lumbar radicular pain 724.4 [facility] [id number] [address]- 1517 Aug, [facility] [address] [address]- 0251 Aug, [facility] [address] [place] [id number] [address]- 3168 Apr, [facility] [address] [address] [id number] [place] [address] 57956- 0600 Apr, [facility] [address] [place] [address] [id number] [place] [address] 10078- 2938 Aug, [facility] [address] [place] [address] [id number] [place] [address] 16694- 4138 Aug, [facility] [address] [place] [address] [id number] [place] [address] 87464- 6422 Jan, [facility] [address] [place] [id number] [address]- 7698 Jan, [facility] [address] [place] [address] [id number] [place] [address] 16962- 0748 Jul, [facility] [address] [address]- 9275 Jul, IMMUNIZATIONS No Known Immunizations SOCIAL HISTORY Never Assessed REASON FOR VISIT cyst removal per Derrick Miller MA PLAN OF CARE Activity Details Follow Up 2 days Reason:wound packing VITAL SIGNS Height 67 in 2017-11-20 Weight 176.4 lbs 2017-11-20 Temperature 98.0 degrees Fahrenheit 2017-11-20 Heart Rate 74 bpm 2017-11-20 Respiratory Rate 22 2017-11-20 Oximetry on room air:98 % 2017-11-20 BMI 27.63 kg/m2 2017-11-20 Blood pressure systolic 128 mmHg 2017-11-20 Blood pressure diastolic 80 mmHg 2017-11-20 MEDICATIONS Medication Instructions Dosage Frequency Start Date End Date Duration Status Cyclobenzaprine HCl 10 mg Orally 2 times a day 1 tablet as needed 12h 20 Mar, 2017 Active [place] 5-325 MG Orally every 6 hrs 1 tablet as needed 6h Aug, Not-Taking Chantix 1 MG Orally Twice a day 1 tablet 12h Mar, Not-Taking Zofran 4 MG Orally 3 times a day 1 tablet 8h Jun, Active PredniSONE Not-Taking ibuprofen 1 tab Not-Taking RESULTS No Results PROCEDURES No Known procedures INSTRUCTIONS MEDICATIONS ADMINISTERED No Known Medications MEDICAL (GENERAL) HISTORY Type Description Date Medical History SI joint disfunction Medical History Bronchitis Surgical History eye surgery at 8 months old
--- OUTSIDE RECORDS SUMMARY | 2018-09-11 05:15 | XMS REPORT ---
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 03639308 Problem Cellulitis and abscess of trunk 682.2 Active 261122004 Problem Encounter for change or removal of nonsurgical wound dressing V58.30 Active 686101444 Problem Encounter for change or removal of surgical wound dressing V58.31 Active 95326261 ALLERGIES No Information ENCOUNTERS Encounter Location Date Diagnosis [facility] [address] [place] [address] Dec, [address] [place] [address] Dec, [address] [place] [address] Nov, Dental examination Z01.[address] [place] [address] Nov, [place] [address] [place] [address] 89957- 1972 Nov, [place] [address] [place] [id number] [place] [address] 42684- 6677 Nov, Dental examination Z01.20 [place] [address] [place] [id number] [place] [address] 45963- 2886 Oct, Abscess of groin, left L02.214 [facility] [address] [place] [address] 57037- 4647 Oct, [place] [address] [place] [address] 58518- 3890 Aug, [facility] [address] [place] [address] 28758- 1103 Jun, [facility] [address] 94589- 7265 Jun, [facility] [address] [place] [id number] [place] [address] 84247 -8705 Mar, Acute midline thoracic back pain M54.6 [facility] [address] 66940- 2052 Mar, [facility] [address] [place] [id number] [place] [address] [id number] Mar, [facility] [address] [id number] Feb, Encounter for dental exam and cleaning w/o abnormal findings Z01.20 [facility] [address] [id number] Feb, Encounter for dental examination Z01.20 [facility] [address] [place] [id number] [place] [address] 29743- 8100 Feb, Bronchitis J40 [facility] [address] [place] [id number] [place] [address] 70705- 3727 Feb, Bronchitis J40 [facility] [address] [place] [id number] [place] [address] 16942- 4173 Aug, [facility] [address] [place] [id number] [place] [address] 49019 -7941 Aug, Fever, unspecified fever cause R50.9 and Acute nasopharyngitis (common cold) J00 [facility] [address] 17152- 2054 Aug, [facility] [address] [place] [id number] [place] [address] 19533- 1626 Apr, Dental examination Z01.20 [facility] [address] 48619- 0041 Mar, [facility] [address] [address]- 1508 Nov, [facility] [address] [place] [address] 29839- 5557 Nov, Sebaceous cyst L72.3 [facility] [address] [id number] [place] [address] 31802- 1938 Nov, [facility] [address] [place] [id number] [place] [address] 82111- 0497 Oct, [facility] [address] [place] [id number] [place] [address] 50937- 4334 Jul, [facility] [address] [place] [id number] [place] [address] 89259- 5721 Jun, [facility] [address] [place] [id number] [place] [address] 13114- 6165 Jun, [facility] [address] [place] [address] 33415- 0929 May, [facility] [address] [place] [id number] [place] [address] 37499- 1064 Mar, [facility] [address] [place] [address] Jan, Dental examination V72.2 [facility] [address] [place] [address] 81193- 2374 Jan, [facility] [id number] [place] [address] 89302- 1717 Jan, [facility] [address] [place] [id number] [place] [address] 31903- 1988 Dec, [facility] [id number] [place] [address] 59839- 8773 Dec, Lumbar neuritis 724.4 [facility] [id number] [place] [address] 46380- 8096 Dec, Lumbar radicular pain 724.4 [facility] [address] [address]- 2353 Aug, [facility] [address], [place] [address]- 0013 Aug, [facility] [address], [place] [address]- 0335 Apr, [facility] [address], [place] [address]- 1442 Apr, [facility] [address], [place] [address]- 7563 Aug, [facility] [address], [place] [address]- 8516 Aug, [facility] [address], [place] [address]- 1462 Jan, [facility] [address], [place] [address]- 9291 Jan, [facility] [address], [place] [address]- 8909 Jul, [facility] [address], [place] [address]- 9905 Jul, IMMUNIZATIONS No Known Immunizations SOCIAL HISTORY Never Assessed REASON FOR VISIT Dental Assessment PLAN OF CARE Activity Details Follow Up prn Reason: VITAL SIGNS MEDICATIONS Unknown Medications RESULTS No Results PROCEDURES Procedure Date Ordered Result Body Site SCREENING OF A PATIENT December 03, 2017 Billing Notes on claim December 03, 2017 INSTRUCTIONS MEDICATIONS ADMINISTERED No Known Medications MEDICAL (GENERAL) HISTORY Type Description Date Medical History SI joint disfunction Medical History Bronchitis Surgical History eye surgery at 8 months old
--- OUTSIDE RECORDS SUMMARY | 2018-09-11 05:15 | XMS REPORT ---
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 26568430 Problem Cellulitis and abscess of trunk 682.2 Active 561745403 Problem Encounter for change or removal of nonsurgical wound dressing V58.30 Active 515954332 Problem Encounter for change or removal of surgical wound dressing V58.31 Active 38772928 ALLERGIES No Information ENCOUNTERS Encounter Location Date Diagnosis [facility] [address] [place] [address] Dec, [facility] [address] [place] [address] Dec, [address] [place] [address] Nov, Dental examination Z01.[address] [place] [address] Nov, [place] [address] [place] [address] 65144- 3974 Nov, [place] [address] [place] [id number] [place] [address] 56850- 6467 Nov, Dental examination Z01.20 [place] [address] [place] [address] 26642- 6803 Oct, Abscess of groin, left L02.214 [place] [address] [place] [address] 12405- 0739 Oct, [place] [address] [place] [address] 34004- 3184 Aug, [facility] [id number] [place] [address] 50450- 2298 Jun, [facility] [address] [id number] [place] [address] 82840- 2046 Jun, [facility] [address] [id number] [place] [address] 33916 -8087 Mar, Acute midline thoracic back pain M54.6 [facility] [address] [place] [id number] [place] [address] 95629- 6197 Mar, [facility] [id number] [place] [address] [id number] Mar, [facility] [address] [id number] Feb, Encounter for dental exam and cleaning w/o abnormal findings Z01.20 [facility] [address] [id number] Feb, Encounter for dental examination Z01.20 [facility] [id number] [place] [address] 64138- 2385 Feb, Bronchitis J40 [facility] [address] [id number] [place] [address] 43271- 4458 Feb, Bronchitis J40 [facility] [address] [id number] [place] [address] 15679- 3742 Aug, [facility] [address] [id number] [place] [address] 09579 -9644 Aug, Fever, unspecified fever cause R50.9 and Acute nasopharyngitis (common cold) J00 [facility] [address] [place] [id number] [place] [address] 26781- 7320 Aug, [facility] [address] [id number] [place] [address] 26089- 5811 Apr, Dental examination Z01.20 [facility] [address] 56163- 2268 Mar, [facility] [address] [place] [address] 59445- 9148 Nov, [facility] [id number] [place] [address] 97795- 4016 Nov, Sebaceous cyst L72.3 [facility] [id number] [place] [address] 72225- 7779 Nov, [facility] [address] [id number] [place] [address] 38836- 1203 Oct, [facility] [address] [id number] [place] [address] 10828- 6268 Jul, [facility] [address] [id number] [place] [address] 47565- 8499 Jun, [facility] [address] [id number] [place] [address] 43556- 1727 Jun, [facility] [id number] [place] [address] 58582- 2150 May, [facility] [id number] [place] [address] 46393- 5123 Mar, [facility] [address] [place] [address] 24 Jan, 2015 Dental examination V72.2 [facility] [id number] [place] [address] 00387- 9327 Jan, [facility] [id number] [place] [address] 76163- 3503 Jan, [facility] [address] [id number] [place] [address] 39384- 1266 Dec, [facility] [id number] [place] [address] 52473- 0282 Dec, Lumbar neuritis 724.4 [facility] [id number] [place] [address] 05329- 4476 Dec, Lumbar radicular pain 724.4 [facility] [address], [place] [address]- 4977 Aug, [facility] [address], [place] [address]- 8353 Aug, [facility] [address], [place] [address]- 9288 Apr, [facility] [address], [place] [address]- 1075 Apr, [facility] [address]- 9233 Aug, [facility] [id number] 0071 Aug, [facility] [address], [place] [address]- 2103 Jan, [facility] [address], [place] [address]- 8604 Jan, [facility] [address]- 4310 Jul, [facility] [address] [place] [id number]- 0183 Jul, IMMUNIZATIONS No Known Immunizations SOCIAL HISTORY Never Assessed REASON FOR VISIT need referral PLAN OF CARE VITAL SIGNS MEDICATIONS Unknown Medications RESULTS No Results PROCEDURES No Known procedures INSTRUCTIONS MEDICATIONS ADMINISTERED No Known Medications MEDICAL (GENERAL) HISTORY Type Description Date Medical History SI joint disfunction Medical History Bronchitis Surgical History eye surgery at 8 months old
--- OUTSIDE RECORDS SUMMARY | 2018-09-11 05:15 | XMS REPORT ---
Author Author MARLEEN SON 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 [address] [place] [address] Dec, [facility] [address] [place] [address] Dec, [address] [place] [address] Nov, Dental examination Z01.[address] [place] [address] Nov, [place] [address] [place] [address] 36979- 2389 Nov, [place] [address] [id number] [place] [address] 08321- 3852 Nov, Dental examination Z01.20 [place] [address] [place] [address] 69071- 9665 Oct, Abscess of groin, left L02.214 [place] [address] [place] [address] 67098- 3748 Oct, [place] [address] [place] [address] 26853- 4630 Aug, [facility] [address] [place] [address] 83815- 0386 Jun, [facility] [id number] [place] [address] 57374- 7651 Jun, [facility] [id number] [place] [address] 13042 [address]2841 Mar, Acute midline thoracic back pain M54.6 [facility] [id number] [place] [address] 73018- 7095 Mar, [facility] [id number] [place] [address] [id number] Mar, [facility] [address] [id number] Feb, Encounter for dental exam and cleaning w/o abnormal findings Z01.20 [facility] [address] [id number] Feb, Encounter for dental examination Z01.20 [facility] [id number] [place] [address] 57070- 9337 Feb, Bronchitis J40 [facility] [id number] [place] [address] 75600- 7561 Feb, Bronchitis J40 [facility] [id number] [place] [address] 89087- 0068 Aug, [facility] [id number] [place] [address]40 -7825 Aug, Fever, unspecified fever cause R50.9 and Acute nasopharyngitis (common cold) J00 [facility] [id number] [place] [address] 66793- 7146 Aug, [facility] [id number] [place] [address] 70664- 0688 Apr, Dental examination Z01.20 [facility] [address] [address]- 4408 Mar, [facility] [address] [place] [address] 87994- 0195 Nov, [facility] [id number] [place] [address] 27775- 3583 Nov, Sebaceous cyst L72.3 [facility] [id number] [place] [address] 36780- 5623 Nov, [facility] [id number] [place] [address] 51037- 2769 Oct, [facility] [id number] [place] [address] 67451- 0961 Jul, [facility] [id number] [place] [address] 93893- 7309 Jun, [facility] [id number] [place] [address] 71878- 8971 Jun, [facility] [address] [place] [address] 73255- 9952 May, [facility] [id number] [place] [address] 23274- 0042 Mar, [facility] [address] [place] [address] 24 Jan, 2015 Dental examination V72.2 [facility] [address] [place] [address] 64482- 9153 Jan, [facility] [address] [place] [address] 23190- 5321 Jan, [facility] [id number] [place] [address] 29527- 6232 Dec, [facility] [address] [place] [address] 40978- 6384 Dec, Lumbar neuritis 724.4 [facility] [address] [place] [address] 72756- 3010 Dec, Lumbar radicular pain 724.4 [facility] [address], [place] [address]- 6557 Aug, [facility] [address] [address]- 0208 Aug, [facility] [address], [place] [address]- 7182 Apr, [facility] [address] [place] [address]- 1204 Apr, [facility] [address] 9479 Aug, [facility] [address] 1832 Aug, [facility] [address] [address]- 6680 Jan, [facility] [address] [place] [address]- 7057 Jan, [facility] [address] [address]- 3482 Jul, [facility] [id number] [address]- 7939 Jul, IMMUNIZATIONS No Known Immunizations SOCIAL HISTORY Never Assessed REASON FOR VISIT xrays PLAN OF CARE VITAL SIGNS MEDICATIONS Unknown Medications RESULTS No Results PROCEDURES No Known procedures INSTRUCTIONS MEDICATIONS ADMINISTERED No Known Medications MEDICAL (GENERAL) HISTORY Type Description Date Medical History SI joint disfunction Medical History Bronchitis Surgical History eye surgery at 8 months old
--- OUTSIDE RECORDS SUMMARY | 2018-09-11 05:16 | XMS REPORT ---
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 85583518 Problem Cellulitis and abscess of trunk 682.2 Active 685336709 Problem Encounter for change or removal of nonsurgical wound dressing V58.30 Active 517203495 Problem Encounter for change or removal of surgical wound dressing V58.31 Active 36749865 ALLERGIES No Information ENCOUNTERS Encounter Location Date Diagnosis [facility] [address] [place] [address] Nov, Dental examination Z01.20 [facility] [address] [place] [address] Nov, [place] [address] [place] [address] 74495- 6900 Nov, [place] [id number] [place] [address] 85913- 2307 Nov, Dental examination Z01.20 [place] [id number] [place] [address] 23236- 1014 Oct, Abscess of groin, left L02.214 [place] [address] [place] [address] 30306- 0257 Oct, [facility] [id number] [place] [address] 63234- 8224 Aug, [facility] [address] [place] [address] 57962- 8027 Jun, [facility] [id number] [place] [address] 92727- 2441 Jun, [facility] [address], [place] [address] Mar, Acute midline thoracic back pain M54.6 [facility] [id number] [place] [address] 41436- 2190 Mar, [facility] [address] [place] [address] [id number] Mar, [facility] [id number] [place] [address] [id number] Feb, Encounter for dental exam and cleaning w/o abnormal findings Z01.20 [facility] [address] [id number] Feb, Encounter for dental examination Z01.20 [facility] [id number] [place] [address] 57638- 1025 Feb, Bronchitis J40 [facility] [id number] [place] [address] 32445- 5760 Feb, Bronchitis J40 [facility] [id number] [place] [address] 95073- 4772 Aug, [facility] [address] [place] [address] 91196 -5510 Aug, Fever, unspecified fever cause R50.9 and Acute nasopharyngitis (common cold) J00 [facility] [id number] [place] [address] 53166- 9263 Aug, [facility] [id number] [place] [address] 56564- 0842 Apr, Dental examination Z01.20 [facility] [id number] [place] [address] 24975- 8156 Mar, [facility] [id number] [place] [address] 30005- 1179 Nov, [facility] [address] [place] [address] [place] [address]- 4140 Nov, Sebaceous cyst L72.3 [facility] [address] [address]- 8681 Nov, [facility] [address] [address]- 5267 Oct, [facility] [id number] [place] [address] 15313- 2417 Jul, [facility] [address] [place] [address] 60322- 7686 Jun, [facility] [id number] [place] [address] 85256- 5767 Jun, [facility] [id number] [place] [address] 35824- 0879 May, [facility] [id number] [place] [address] 89342- 5867 Mar, [facility] [address] [place] [address] 24 Jan, 2015 Dental examination V72.2 [facility] [address] [place] [address] 81617- 9329 Jan, [facility] [address] [address]- 6110 Jan, [facility] [address] [address]- 6764 Dec, [facility] [address] [place] [address] 14454- 1412 Dec, Lumbar neuritis 724.4 [facility] [address] [address]- 3045 Dec, Lumbar radicular pain 724.4 [facility] [address] [address]- 3389 14 Aug, 2014 [facility] [address] [address]- 2546 Aug, [facility] [id number] [address]- 8130 Apr, [facility] [address] [address]- 3436 Apr, [facility] [id number] [address]- 6776 Aug, [facility] [address] [address]- 2546 Aug, [facility] [address] [address]- 4136 Jan, [facility] [address] [address]- 9816 Jan, [facility] [address] [address]- 7646 Jul, [facility] [id number] [address]- 7836 Jul, IMMUNIZATIONS No Known Immunizations SOCIAL HISTORY Never Assessed REASON FOR VISIT PLAN OF CARE VITAL SIGNS MEDICATIONS Medication Instructions Dosage Frequency Start Date End Date Duration Status Amoxicillin 500 mg Orally every 8 hrs 1 capsule 8h Aug, Aug, 10 day(s) Active RESULTS No Results PROCEDURES No Known procedures INSTRUCTIONS MEDICATIONS ADMINISTERED No Known Medications MEDICAL (GENERAL) HISTORY Type Description Date Medical History SI joint disfunction Medical History Bronchitis Surgical History eye surgery at 8 months old
--- OUTSIDE RECORDS SUMMARY | 2018-09-11 05:16 | XMS REPORT ---
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 Unknown Non Drug Allergy Apr, Unknown SOCIAL HISTORY No smoking Hx information available PLAN OF CARE VITAL SIGNS Height 67 in 2016-05-03 Heart Rate 60 bpm 2016-05-03 Blood pressure systolic 113 mmHg 2016-05-03 Blood pressure diastolic 73 mmHg 2016-05-03 MEDICATIONS Unknown Medications RESULTS No Results PROCEDURES Procedure Date Ordered Related Diagnosis Body Site COMP ORAL EVALUATION - NEW/EST PT May 03, 2016 INTRAORL-PERIAPICAL 1 FILM 19475 May 03, 2016 Billing Notes on claim May 03, 2016 PANORAMIC FILM SEE ALSO CODE [id number] May 03, 2016 [facility] Employee/Board adjustment May 03, 2016 INTRAORL-PERIAPICAL EA ADD FILM May 03, 2016 INTRAORL-PERIAPICAL EA ADD FILM May 03, 2016 BITEWINGS - FOUR FILMS May 03, 2016 INTRAORL-PERIAPICAL EA ADD FILM May 03, 2016 IMMUNIZATIONS No Known Immunizations
--- OUTSIDE RECORDS SUMMARY | 2018-09-11 05:16 | XMS REPORT ---
Author TATIANA Schaefer Organization [employer] Address Unknown Phone Unavailable Care Team Providers Care Payroll And Benefits Manager Name Role Phone TATIANA NUÑEZ CP Unavailable Allergies, Adverse Reactions, Alerts Substance Reaction Event Type N.K.D.A. 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 Problem Encounter for change or removal of surgical wound dressing V58.31 Active Assessment Sebaceous cyst L72.3 Active Medications Medication Code System Code Instructions Start Date End Date Status Dosage Chantix [facility] [address]-77 1 MG Orally Twice a day Apr 26, 2015 1 tablet Keflex [facility] [address]-14 500 MG Orally Four times a day December 01, 2015 December 11, 2015 1 capsule [place] [facility] [address]-45 5-325 MG Orally every 6 hrs December 07, 2015 1 [place] [address]-52 5-325 MG Orally every 6 hrs Jul 19, 2015 1 tablet as needed Procedures Procedure Coding System Code Date Office Visit, Est Pt., Level 2 CPT-4 40463 December 07, 2015 EXC TR-EXT B9 DONOVAN 2.1-3 CM CPT-4 45734 December 07, 2015 Vital Signs Date/Time: December 07, 2015 Cardiac Monitoring Heart Rate 76 bpm Weight 175.7 lbs Height 67 in Blood Pressure Diastolic 68 mmHg Blood Pressure Systolic 112 mmHg Results No Known Results Summary Purpose [employer] Submission
--- OUTSIDE RECORDS SUMMARY | 2018-09-11 05:16 | XMS REPORT ---
Author TATIANA Schaefer [facility] [employer] Address Unknown Phone Unavailable Care Team Providers Care Public Safety Police Name Role Phone TATIANA NUÑEZ CP Unavailable [...] removal of surgical wound dressing V58.31 Active Medications Medication Code System Code Instructions Start Date End Date Status Dosage [place] [facility] [address]-09 5-325 MG Orally every 6 hrs Jul 19, 2015 1 tablet as needed Chantix [facility] [address]-89 1 MG Orally Twice a day Apr 26, 2015 1 tablet [place] [facility] [address]-87 5-325 MG Orally every 6 hrs December 07, 2015 1 tablet as needed Results No Known Results Summary Purpose [employer] Submission
--- OUTSIDE RECORDS SUMMARY | 2018-09-11 05:16 | XMS REPORT ---
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
--- OUTSIDE RECORDS SUMMARY | 2018-09-11 05:16 | XMS REPORT ---
Author ROXY Bryan [facility] [employer] Address Unknown Phone Unavailable Care Team Providers Care Bicycle Courier Name Role Phone ROXY PURCELL CP Unavailable Allergies No Known Allergies Problems Problem Type Condition Code Onset Dates [...]
--- OUTSIDE RECORDS SUMMARY | 2018-09-11 05:16 | XMS REPORT ---
Author Author TATIANA NUÑEZ Organization 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 [address] [address] Aug, [facility] [id number] [place] [address]958- 0011 Jun, [facility] [address] [address] Jun, [facility] [id number] [place] [address] 68899 -3662 Mar, Acute midline thoracic back pain M54.6 [facility] [id number] [place] [address] 57318- 8906 Mar, [facility] [id number] [place] [address] [id number] Mar, [facility] [address] [id number] Feb, Encounter for dental exam and cleaning w/o abnormal findings Z01.20 [facility] [id number] [place] [address] [id number] Feb, Encounter for dental examination Z01.20 [facility] [address] [id number] [address]- 6187 Feb, Bronchitis J40 [facility] [id number] [place] [address] 72839- 9404 11 Feb, [address] [facility] [id number] [place] [address] 69131- 8004 Aug, [facility] [id number] [place] [address] 14746 -0668 Aug, Fever, unspecified fever cause R50.9 and Acute nasopharyngitis (common cold) J00 [facility] [id number] [place] [address] 15609- 4574 Aug, [facility] [id number] [place] [address] 48861- 8535 Apr, Dental examination Z01.20 [facility] [id number] [place] [address] 02789- 7732 Mar, [facility] [id number] [place] [address] 06718- 4226 Nov, [facility] [id number] [place] [address] 61289- 8485 Nov, Sebaceous cyst L72.3 [facility] [address] [place] [address] 49284- 4303 Nov, [facility] [address] [place] [address] 37586- 9430 Oct, [facility] [id number] [place] [address] 08777- 0068 Jul, [facility] [id number] [place] [address] 57653- 4597 Jun, [facility] [address] [place] [address] 50036- 2710 Jun, [facility] [address] [id number] [address]- 4507 May, [facility] [address] [id number], [place] [address]- 0269 Mar, [facility] [address] [id number] [place] [id number] Jan, Dental examination V72.2 [facility] [address] [id number] [address]- 2806 Jan, [facility] [address] [id number], [place] [address]- 9192 Jan, [facility] [address] [id number], [place] [address]- 5841 Dec, [facility] [address] [id number] [address]- 3972 Dec, Lumbar neuritis 724.4 [facility] [address] [id number], [place] [address]- 1625 Dec, Lumbar radicular pain 724.4 [facility] [address] [id number], [place] [address]- 1066 Aug, [facility] [address] [id number], [place] [address]- 5862 Aug, [facility] [address] [id number], [place] [address]- 7409 Apr, [facility] [address] [id number], [place] [address]- 0035 Apr, [facility] [address] [id number], [place] [address]- 3367 Aug, [facility] [address] [id number], [place] [address]- 4398 Aug, [facility] [address] [id number], [place] [address]- 3186 Jan, [facility] [address] [facility] [id number] [place] [address]- 5962 Jan, [facility] [address] [facility] [id number], [place] [address] 9[address] Jul, [facility] [address] [facility] [id number] [place] [address]- 2609 Jul, IMMUNIZATIONS No Known Immunizations SOCIAL HISTORY Never Assessed REASON FOR VISIT Xray (walk-in) MHill RT(R) PLAN OF CARE VITAL SIGNS MEDICATIONS Unknown Medications RESULTS Name Result Date Reference Range Xray : Chest (IN HOUSE) 2017-03-07 PROCEDURES Procedure Date Ordered Result Body Site CHEST X-RAY Mar 07, 2017 INSTRUCTIONS MEDICATIONS ADMINISTERED No Known Medications MEDICAL (GENERAL) HISTORY Type Description Date Medical History SI joint disfunction Medical History Bronchitis Surgical History eye surgery at 8 months old
--- OUTSIDE RECORDS SUMMARY | 2018-09-11 05:16 | XMS REPORT ---
Author PRITI Hill [facility] [employer] Address Unknown Phone Unavailable Care Team Providers Care Golf Shoe Spike Assembler Name Role Phone PRITI LI CP Unavailable Allergies, Adverse Reactions, Alerts Substance [...] of surgical wound dressing V58.31 Active Assessment Dental examination V72.2 Active Medications No Known Medications Procedures Procedure Coding System Code Date [facility] Employee/Board adjustment CPT-4 [facility] Feb 18, 2015 EXTRAC ERUPTED TOOTH/EXPOSED ROOT CPT-4 D7140 Feb 18, 2015 Vital Signs Date/Time: Feb 18, 2015 Blood Pressure Diastolic 79 mmHg Blood Pressure Systolic 120 mmHg Results No Known Results Summary Purpose [employer] Submission
--- OUTSIDE RECORDS SUMMARY | 2018-09-11 05:16 | XMS REPORT ---
Author TATIANA Schaefer Organization [employer] Address Unknown Phone Unavailable Care Team Providers Care Cripple Cutter Name Role Phone TATIANA NUÑEZ CP [...] Start Date End Date Status Dosage Chantix [facility] [address]-60 1 MG Orally Twice a day Apr 26, 2015 1 tablet Results No Known Results Summary Purpose [employer] Submission
--- OUTSIDE RECORDS SUMMARY | 2018-09-11 05:16 | XMS REPORT ---
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 70177041 Problem Cellulitis and abscess of trunk 682.2 Active 234722214 Problem Encounter for change or removal of nonsurgical wound dressing V58.30 Active 130217027 Problem Encounter for change or removal of surgical wound dressing V58.31 Active 12975759 ALLERGIES No Information ENCOUNTERS Encounter Location Date Diagnosis [facility] [address] [address] Oct, Abscess of groin, left L02.214 [facility] [id number] [place] [address] 25544- 0087 Oct, [facility] [id number] [place] [address] 39899- 4116 Aug, [facility] [id number] [place] [address] 15870- 0513 Jun, [facility] [id number] [place] [address] 29859- 4426 Jun, [facility] [id number] [place] [address] 21302 -2585 Mar, Acute midline thoracic back pain M54.6 [facility] [address] [address]- [address] Mar, [facility] [id number] [place] [address] [id number] Mar, [facility] [address] [id number] Feb, Encounter for dental exam and cleaning w/o abnormal findings Z01.20 [facility] [address] [id number] Feb, Encounter for dental examination Z01.20 [facility] [id number] [place] [address] 13475- 7523 Feb, Bronchitis J40 [facility] [address] [address]- 3962 Feb, Bronchitis J40 [facility] [address] 0[address]- 67[address] Aug, [facility] [address] [address] Aug, Fever, unspecified fever cause R50.9 and Acute nasopharyngitis (common cold) J00 [facility] [address] [address]- 6705 Aug, [facility] [id number] [place] [address] 99987- 2419 Apr, Dental examination Z01.20 [facility] [address] [address]- 9260 Mar, [facility] [id number] [place] [address] 54742- 8721 Nov, [facility] [address] 19428- 3965 Nov, Sebaceous cyst L72.3 [facility] [address] 97384- 0320 Nov, [facility] [address] 80890- 8578 Oct, [facility] [id number] [place] [address] 49025- 6598 Jul, [facility] [address] [id number] [address] Jun, [facility] [address] [id number] [place] [address] 16[address] Jun, [facility] [address] [id number] [place] [address] 07[address] May, [facility] [address] [id number] [place] [address] 4547 Mar, [facility] [place] [address] [id number] [place] [id number] Jan, Dental examination V72.2 [facility] [address] [id number] [place] [address]- 6436 Jan, [facility] [address] [id number] [place] [address] 0039 Jan, [facility] [address] [id number] [place] [address] 3057 Dec, [facility] [address]65[address] [address] Dec, Lumbar neuritis 724.4 [facility] [address] [id number] [address] 0838 Dec, Lumbar radicular pain 724.4 [facility] [address] [id number] [place] [address]- 4665 Aug, [facility] [address] [id number] [place] [address]- 9814 Aug, [facility] [address] [id number] [place] [address]- 8350 Apr, [facility] [address] [id number] [address] 8726 Apr, [facility] [address] [id number] [address]- 6003 Aug, [facility] [address] [facility] [id number] [place] [address]- 2546 Aug, [facility] [address] [facility] [id number] [place] [address]- 2546 Jan, [facility] [address] [facility] [id number] [place] [address]- 2546 Jan, [facility] [address] [facility] [id number] [place] [address]- 2546 Jul, [facility] [address] [facility] [id number] [place] [address]- 2546 Jul, IMMUNIZATIONS No Known Immunizations SOCIAL HISTORY Never Assessed REASON FOR VISIT back pain PLAN OF CARE VITAL SIGNS MEDICATIONS Medication Instructions Dosage Frequency Start Date End Date Duration Status PredniSONE 20 mg Orally Once a day 2 tablets 24h Jun, Jun, 05 days Active RESULTS No Results PROCEDURES No Known procedures INSTRUCTIONS MEDICATIONS ADMINISTERED No Known Medications MEDICAL (GENERAL) HISTORY Type Description Date Medical History SI joint disfunction Medical History Bronchitis Surgical History eye surgery at 8 months old
--- OUTSIDE RECORDS SUMMARY | 2018-09-11 05:16 | XMS REPORT ---
Author TATIANA Schaefer Organization [employer] Address Unknown Phone Unavailable Care Team Providers Care Ct Mri Technologist Name Role Phone TATIANA NUÑEZ CP Unavailable [...] Instructions Start Date End Date Status Dosage Bactrim DS [facility] [address]-87 800-160 MG Orally Twice a day Jul 02, 2015 Jul 12, 2015 1 tablet Results No Known Results Summary Purpose [employer]Clinical[employer] Submission
--- OUTSIDE RECORDS SUMMARY | 2018-09-11 05:17 | XMS REPORT ---
Author TATIANA Schaefer Organization [employer] Address Unknown Phone Unavailable Care Team Providers Care Perishable Fruit Inspector Name Role Phone TATIANA NUÑEZ CP Unavailable [...]
--- OUTSIDE RECORDS SUMMARY | 2018-09-11 05:17 | XMS REPORT ---
Author TATIANA Schaefer Organization [employer] Address Unknown Phone Unavailable Care Team Providers Care Director Pharmacy Services Name Role Phone TATIANA NUÑEZ CP Unavailable [...] Instructions Start Date End Date Status Dosage PredniSONE [facility] [address]-34 20 mg Orally Once a day Mar 28, 2016 Apr 07, 2016 2 tablets Results No Known Results Summary Purpose [employer] Submission
--- OUTSIDE RECORDS SUMMARY | 2018-09-11 05:17 | XMS REPORT ---
Author Author TATIANA NUÑEZ Organization 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 [address] [address] Aug, [facility] [id number] [place] [address]145- 4448 Jun, [facility] [address] [address] Jun, [facility] [id number] [place] [address] -4172 Mar, Acute midline thoracic back pain M54.6 [facility] [id number] [place] [address] 24057- 6467 Mar, [facility] [id number] [place] [id number] Mar, [facility] [address] [id number] Feb, Encounter for dental exam and cleaning w/o abnormal findings Z01.20 [facility] [id number] [place] [address] [id number] Feb, Encounter for dental examination Z01.20 [facility] [address] [id number] [address] Feb, Bronchitis J40 [facility] [id number] [place] [address] 38235- 1092 11 Feb, [address] [facility] [id number] [place] [address] 90314- 0823 Aug, [facility] [id number] [place] [address]150 -8956 Aug, Fever, unspecified fever cause R50.9 and Acute nasopharyngitis (common cold) J00 [facility] [id number] [place] [address] 59848- 9412 Aug, [facility] [id number] [place] [address] 56433- 0527 Apr, Dental examination Z01.20 [facility] [id number] [place] [address] 47027- 9605 Mar, [facility] [id number] [place] [address] 88609- 3450 Nov, [facility] [id number] [place] [address] 49169- 2468 Nov, Sebaceous cyst L72.3 [facility] [address] [place] [address] 74078- 5834 Nov, [facility] [address] [place] [address] 02135- 1141 Oct, [facility] [id number] [place] [address] 95245- 4172 Jul, [facility] [id number] [place] [address] 34608- 3676 Jun, [facility] [address] [place] [address] 72633- 0282 Jun, [facility] [address] [id number] [address]- 4424 May, [facility] [address] [id number], [place] [address]- 4409 Mar, [facility] [place] [address] [id number] [place] [id number] Jan, Dental examination V72.2 [facility] [address] [id number], [place] [address]- 0632 Jan, [facility] [address] [id number], [place] [address]- 0833 Jan, [facility] [address] [id number], [place] [address]- 5095 Dec, [facility] [address] [id number], [place] [address]- 4572 Dec, Lumbar neuritis 724.4 [facility] [address] [id number], [place] [address]- 8937 Dec, Lumbar radicular pain 724.4 [facility] [address] [id number], [place] [address]- 0345 Aug, [facility] [address] [id number], [place] [address]- 0223 Aug, [facility] [address] [id number], [place] [address]- 3875 Apr, [facility] [address] [id number], [place] [address]- 1740 Apr, [facility] [address] [id number], [place] [address]- 1785 Aug, [facility] [address] [id number], [place] [address]- 3661 Aug, [facility] [address] [id number], [place] [address]- 7839 Jan, [facility] [address] [facility] [id number] [place] [address]- [address] Jan, [facility] [address] [facility] [id number] [place] [address]- [address]387 Jul, [facility] [address] [facility] [id number] [place] [address]- 7133 Jul, IMMUNIZATIONS No Known Immunizations SOCIAL HISTORY Never Assessed REASON FOR VISIT Routine nurse call PLAN OF CARE VITAL SIGNS MEDICATIONS Medication Instructions Dosage Frequency Start Date End Date Duration Status Chantix 1 MG Orally Twice a day 1 tablet 12h Feb, Aug, 30 day(s) Active PredniSONE 20 mg Orally Once a day 2 tablets 24h Feb, Feb, 05 days Active Doxycycline Hyclate 100 mg Orally every 12 hrs 1 capsule 12h Feb, Feb, 10 days Active RESULTS No Results PROCEDURES Procedure Date Ordered Result Body Site CHEST X-RAY Mar 07, 2017 INSTRUCTIONS MEDICATIONS ADMINISTERED No Known Medications MEDICAL (GENERAL) HISTORY Type Description Date Medical History SI joint disfunction Medical History Bronchitis Surgical History eye surgery at 8 months old
--- OUTSIDE RECORDS SUMMARY | 2018-09-11 05:17 | XMS REPORT ---
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 [id number] [place] [address] 93204- 1948 Aug, [facility] [id number] [place] [address] 45034- 3344 Jun, [facility] [id number] [place] [address] 35260- 3473 Jun, [facility] [id number] [place] [address] 95342 -5637 Mar, Acute midline thoracic back pain M54.6 [facility] [id number] [place] [address] 44052- 4318 Mar, [facility] [id number] [place] [address] [id number] Mar, [facility] [id number] [place] [address] [id number] Feb, Encounter for dental exam and cleaning w/o abnormal findings Z01.20 [facility] [id number] [place] [address] [id number] Feb, Encounter for dental examination Z01.20 [facility] [address] [place] [address]- 7196 Feb, Bronchitis J40 [facility] [id number] [place] [address] 87961- 0895 Feb, Bronchitis J40 [facility] [id number] [place] [address] 08081- 5249 Aug, [facility] [id number] [place] [address] 65758 -3161 Aug, Fever, unspecified fever cause R50.9 and Acute nasopharyngitis (common cold) J00 [facility] [id number] [place] [address] 61632- 5511 Aug, [facility] [id number] [place] [address] 23627- 5620 Apr, Dental examination Z01.20 [facility] [id number] [place] [address] 35976- 2124 Mar, [facility] [id number] [place] [address] 27000- 7413 Nov, [facility] [id number] [place] [address] 45807- 0297 Nov, Sebaceous cyst L72.3 [facility] [id number] [place] [address] 27271- 4280 Nov, [facility] [id number] [place] [address] 13092- 9360 Oct, [facility] [id number] [place] [address] 58309- 0645 Jul, [facility] [id number] [place] [address] 62940- 0315 Jun, [facility] [id number] [place] [address] 17354- 0870 Jun, [facility] [id number] [place] [address] 40924- 0657 May, [facility] [address] [id number], [place] [address]- 2471 Mar, [facility] [place] [address] [id number] [place] [id number] Jan, Dental examination V72.2 [facility] [address] [id number], [place] [address]- 6469 Jan, [facility] [address] [id number], [place] [address]- 3134 Jan, [facility] [id number] [place] [address] 62528- 8190 Dec, [facility] [id number] [place] [address] 91512- 8129 Dec, Lumbar neuritis 724.4 [facility] [id number] [place] [address] 69795- 8563 Dec, Lumbar radicular pain 724.4 [facility] [address] [id number], [place] [address]- 7266 Aug, [facility] [address] [id number] [place] [address] 31123- 0426 Aug, [facility] [address] [id number], [place] [address]- 2335 Apr, [facility] [address] [id number], [place] [address]- 8470 Apr, [facility] [address] [id number], [place] [address]- 7862 Aug, [facility] [id number] [place] [address] 41241- 2589 Aug, [facility] [address] [id number], [place] [address]- 4862 Jan, [facility] [id number] [place] [address] 27724- 1066 Jan, [facility] [address] [id number] [place] [address]- 4576 Jul, [facility] [address] [id number] [place] [address]- 2546 Jul, IMMUNIZATIONS No Known Immunizations SOCIAL HISTORY Never Assessed REASON FOR VISIT [facility] EMPLOYEE-[employer] PLAN OF CARE Activity Details Follow Up prn Reason:I WILL CALL HIM FOR NEXT APPOINTMENT VITAL SIGNS MEDICATIONS Medication Instructions Dosage Frequency Start Date End Date Duration Status Chantix 1 MG Orally Twice a day 1 tablet 12h Feb, Aug, 30 day(s) Active [place] 5-325 MG Orally every 6 hrs 1 tablet as needed 6h 05 Aug, 2016 Active Chantix 1 MG Orally Twice a day 1 tablet 12h Mar, Active RESULTS No Results PROCEDURES Procedure Date Ordered Result Body Site Periodontal scaling and root Mar 23, 2017 Periodontal scaling and root Mar 23, 2017 [facility] Employee/Board adjustment Mar 23, 2017 Billing Notes on claim Mar 23, 2017 INSTRUCTIONS MEDICATIONS ADMINISTERED No Known Medications MEDICAL (GENERAL) HISTORY Type Description Date Medical History SI joint disfunction Medical History Bronchitis Surgical History eye surgery at 8 months old
--- OUTSIDE RECORDS SUMMARY | 2018-09-11 05:17 | XMS REPORT ---
Author Author ISAÍAS DOMINGUEZ Organization [facility] Address [address] [place] [address] Care Team Providers Care Dope Maintenance Worker Name Role Phone ISAÍAS DOMINGUEZ Unavailable PROBLEMS Type Condition ICD9-CM Code HTS48-AS Code Onset Dates Condition Status SNOMED Code Problem Lipoma of other specified sites 214.8 Active 91567964 Problem Cellulitis and abscess of trunk 682.2 Active 445152396 Problem Encounter for change or removal of nonsurgical wound dressing V58.30 Active 616148258 Problem Encounter for change or removal of surgical wound dressing V58.31 Active [id number] ALLERGIES No Information ENCOUNTERS Encounter Location Date Diagnosis [facility] [id number] [place] [address] 53840- 4974 Aug, [facility] [id number] [place] [address] 89400- 0899 Jun, [facility] [id number] [place] [address] 03799- 0870 Jun, [facility] [id number] [place] [address] 18888 -3729 Mar, Acute midline thoracic back pain M54.6 [facility] [id number] [place] [address] 62602- 6037 Mar, [facility] [id number] [place] [address] [id number] Mar, [facility] [id number] [place] [address] [phone] Feb, Encounter for dental exam and cleaning w/o abnormal findings Z01.20 [facility] [id number] [place] [address] [phone] Feb, Encounter for dental examination Z01.20 [facility] [id number] [place] [address] 83882- 0034 11 Feb, 2017 Bronchitis J40 [facility] [id number] [place] [address] 33673- 0484 11 Feb, 2017 Bronchitis J40 [facility] [id number] [place] [address] 31868- 8808 Aug, [facility] [id number] [place] [address] 13133 -5137 Aug, Fever, unspecified fever cause R50.9 and Acute nasopharyngitis (common cold) J00 [facility] [id number] [place] [address] 54937- 4475 Aug, [facility] [id number] [place] [address] 20820- 6276 Apr, Dental examination Z01.20 [facility] [id number] [place] [address] 06144- 2022 Mar, [facility] [id number] [place] [address] 99727- 8550 Nov, [facility] [id number] [place] [address] 26301- 6735 Nov, Sebaceous cyst L72.3 [facility] [id number] [place] [address] 20288- 5008 Nov, [facility] [id number] [place] [address] 56956- 5278 Oct, [facility] [id number] [place] [address] 08446- 4353 Jul, [facility] [id number] [place] [address] 42588- 7281 Jun, [facility] [id number] [place] [address] 04613- 3349 Jun, [facility] [address] [id number] [address] May, [facility] [address] [id number], [place] [address] Mar, [facility] [place] [address] [id number] [place] [id number] 24 Jan, 2015 Dental examination V72.2 [facility] [address] [id number], [place] [address] Jan, [facility] [address] [id number], [place] [address] 235[address] Jan, [facility] [address] [id number], [place] [address] 85[address] Dec, [facility] [address] [id number] [address] 97[address] Dec, Lumbar neuritis 724.4 [facility] [address] [id number], [place] [address] 7358 Dec, Lumbar radicular pain 724.4 [facility] [address] [id number], [place] [address] 5[address] Aug, [facility] [address] [facility] [id number], [place] [address] 8271 Aug, [facility] [address] [id number], [place] [address] 45[address] Apr, [facility] [address] [id number], [place] [address] 9[address] Apr, [facility] [address] [id number], [place] [address] 5031 Aug, [facility] [address] [id number], [place] [address]- 9729 Aug, [facility] [address] [id number], [place] [address] 8200 Jan, [facility] [address] [id number] [place] [address] Jan, [facility] [address] [id number] [place] [address]- 2457 Jul, [facility] [address] [id number] [place] [address] 49[address] Jul, IMMUNIZATIONS No Known Immunizations SOCIAL HISTORY Never Assessed REASON FOR VISIT Pain PLAN OF CARE VITAL SIGNS MEDICATIONS Unknown Medications RESULTS No Results PROCEDURES No Known procedures INSTRUCTIONS MEDICATIONS ADMINISTERED No Known Medications MEDICAL (GENERAL) HISTORY Type Description Date Medical History SI joint disfunction Medical History Bronchitis Surgical History eye surgery at 8 months old
--- OUTSIDE RECORDS SUMMARY | 2018-09-11 05:17 | XMS REPORT ---
Author TATIANA Schaefer Organization [employer] Address Unknown Phone Unavailable Care Team Providers Care Invasive Manager Name Role Phone TATIANA NUÑEZ CP [...] Start Date End Date Status Dosage PredniSONE [facility] [address]-82 20 MG Orally Twice a day Jan 26, 2015 Jan 31, 2015 1 tablet with food or milk Results No Known Results Summary Purpose [employer] Submission
--- OUTSIDE RECORDS SUMMARY | 2018-09-11 05:17 | XMS REPORT ---
Author Author ELZBIETA MURO Organization [facility] Address [address] [place] [address] Care Team Providers Care Bath Steward Name Role Phone ELZBIETA MURO Unavailable PROBLEMS Type Condition ICD9-CM Code FIM33-TJ Code Onset Dates Condition Status SNOMED Code Problem Encounter for dental examination Z01.20 Active 666111596 Problem Lipoma of other specified sites 214.8 Active 61061367 Problem Encounter for change or removal of surgical wound dressing V58.31 Active 61813405 Problem Cellulitis and abscess of trunk 682.2 Active 830208658 Problem Encounter for change or removal of nonsurgical wound dressing V58.30 Active 486951190 ALLERGIES No Known Allergies SOCIAL HISTORY Never Assessed PLAN OF CARE Activity Details Follow Up prn Reason: VITAL SIGNS Height 67 in 2016-09-14 Weight 180.0 lbs 2016-09-14 Temperature 100.9 degrees Fahrenheit 2016-09-14 Heart Rate 80 bpm 2016-09-14 Respiratory Rate 22 2016-09-14 BMI 28.19 kg/m2 2016-09-14 Blood pressure systolic 110 mmHg 2016-09-14 Blood pressure diastolic 80 mmHg 2016-09-14 MEDICATIONS Medication Instructions Dosage Frequency Start Date End Date Duration Status ibuprofen 1 tab Active RESULTS Name Result Date Reference Range STREP A (IN HOUSE) 2016-09-14 STREP A negative Control + Lot # [id number] Exp date [id number] PROCEDURES Procedure Date Ordered Result Body Site INFLUENZA ASSAY W/OPTIC September 14, 2016 STREP A ASSAY W/OPTIC September 14, 2016 IMMUNIZATIONS No Known Immunizations MEDICAL (GENERAL) HISTORY Type Description Date Medical History SI joint disfunction Medical History Bronchitis Surgical History eye surgery at 8 months old
--- OUTSIDE RECORDS SUMMARY | 2018-09-11 05:17 | XMS REPORT ---
Author Author JOHANNA RODRIGUEZ [facility] Address [address] [place] [address] Care Team Providers Care Radiologic Technology Instructor Name Role Phone JOHANNA RODRIGUEZ Unavailable PROBLEMS Type Condition ICD9-CM Code AMG57-BR Code Onset Dates Condition Status SNOMED Code Problem Lipoma of other specified sites 214.8 Active 36448049 Problem Cellulitis and abscess of trunk 682.2 Active 589078766 Problem Encounter for change or removal of nonsurgical wound dressing V58.30 Active 158475354 Problem Encounter for change or removal of surgical wound dressing V58.31 Active 58984740 ALLERGIES No Known Allergies ENCOUNTERS Encounter Location Date Diagnosis [facility] [place] [address] [address]- [address] Aug, [facility] [place] [address] 38564- 1614 Jun, [facility] [place] [address] 86298- 4145 Jun, [facility] [id number] [place] [address] 83586 -0058 Mar, Acute midline thoracic back pain M54.6 [facility] [place] [address] [address]- 2891 Mar, [facility] [id number] [place] [address] [id number] Mar, [facility] [address] [id number] Feb, Encounter for dental exam and cleaning w/o abnormal findings Z01.20 [facility] [id number] [place] [address] [id number] Feb, Encounter for dental examination Z01.20 [facility] [place] [address]65100[place] [address]- [address] Feb, Bronchitis J40 [facility] [place] [id number] [place] [address] 83277- 0626 Feb, Bronchitis J40 [facility] [place] [address] [place] [address] 47197- 7957 Aug, [facility] [id number] [place] [address] 81737 -7333 Aug, Fever, unspecified fever cause R50.9 and Acute nasopharyngitis (common cold) J00 [facility] [place] [id number] [place] [address] 62498- 8001 Aug, [facility] [place] [id number] [place] [address] 58422- 0988 Apr, Dental examination Z01.20 [facility] [place] [id number] [place] [address] 12061- 5669 Mar, [facility] [place] [id number] [place] [address] 59571- 2704 Nov, [facility] [place] [id number] [place] [address] 87735- 0980 Nov, Sebaceous cyst L72.3 [facility] [place] [address] [place] [address] 93586- 3707 Nov, [facility] [place] [id number] [place] [address] 52988- 2170 Oct, [facility] [place] [id number] [place] [address] 44700- 7718 Jul, [facility] [place] [id number] [place] [address] 37250- 8371 Jun, [facility] [place] [address] [place] [address] 74427- 2800 Jun, [facility] [place] [address] [id number] [address] 2011 May, [facility] [address] [id number] [address]- 290[address] Mar, [facility] [place] [address] [id number] [place] [id number] 24 Jan, 2015 Dental examination V72.2 [facility] [address] [id number] [address]- 1741 Jan, [facility] [address] [id number] [place] [address]- 0014 Jan, [facility] [address] [id number] [place] [address]- 4886 Dec, [facility] [address] [id number] [place] [address]- 9425 Dec, Lumbar neuritis 724.4 [facility] [address] [id number] [address]- 1030 Dec, Lumbar radicular pain 724.4 [facility] [address] [id number] [place] [address]- 4449 Aug, [facility] [address] [facility] [id number] [place] [address]- 4710 Aug, [facility] [address] [id number] [address]- 6210 Apr, [facility] [address] [id number] [address]- 3600 Apr, [facility] [address] [id number] [place] [address]- 2686 Aug, [facility] [address] [facility] [id number] [place] [address]- 9616 Aug, [facility] [address] [id number] [address]- 4990 Jan, [facility] [address] [facility] [facility] [id number] [place] [address] Jan, [facility] [place] [address] [facility] [facility] [id number] [place] [address]- 7655 Jul, [facility] [place] [address] [facility] [id number] [place] [address]- 7785 Jul, IMMUNIZATIONS No Known Immunizations SOCIAL HISTORY Never Assessed REASON FOR VISIT alonso PLAN OF CARE Activity Details Follow Up GUERO Reason:SRP VITAL SIGNS Heart Rate 101 bpm 2017-03-19 Blood pressure systolic 123 mmHg 2017-03-19 Blood pressure diastolic 78 mmHg 2017-03-19 MEDICATIONS Medication Instructions Dosage Frequency Start Date End Date Duration Status ibuprofen 1 tab Active PredniSONE Active RESULTS No Results PROCEDURES Procedure Date Ordered Result Body Site LTD ORAL EVALUATION - PROBLEM FOCUS Mar 19, 2017 INTRAORL-PERIAPICAL 1 FILM [id number] Mar 19, 2017 [facility] Employee/Board adjustment Mar 19, 2017 Billing Notes on claim Mar 19, 2017 INSTRUCTIONS MEDICATIONS ADMINISTERED No Known Medications MEDICAL (GENERAL) HISTORY Type Description Date Medical History SI joint disfunction Medical History Bronchitis Surgical History eye surgery at 8 months old
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
--- NOTE | 2018-09-11 05:22 | NUR ---
CALLED PT'S NAME THREE TIMES IN WAITING ROOM, PT NOT PRESENT IN THE WAITING ROOM OR RESTROOM. REGISTRATION STAFF STATE THAT THE PT SIGNED HIMSELF OUT AND LEFT THE ED AFTER A CRITICAL PT WAS BROUGHT BACK AHEAD OF HIM
== END 2018-09-11 05:22 | disposition left against medical advice (07) ==
LOC: EDUNIT# 05:07 → ER 05:11
DX: R22.0 Localized swelling, mass and lump, head (principal)

== ENCOUNTER 2019-03-27 07:57 | Emergency (ER) | payer OTHER ==
[~2019-03-27] VITALS: Ht 172.7 cm; Wt 78.2 kg
--- NOTE | 2019-03-27 08:27 | ED EENT ---
History of Present Illness General Chief Complaint: Dental Problems/Pain Stated Complaint: DENTAL PAIN Nursing Triage Note: Pt reports being sent to by Paul Meek for dental concerns. Pt has two abscessed teeth on the R upper side. Pt reports swelling has worsened today. Pt reports taking Amoxicillin and tylenol and IBU. Pt denies pain at this time. Source: patient Exam Limitations: no limitations (GRAYSON MUNGUIA STUDENT) History of Present Illness Date Seen by Provider: Mar 27, 2019 Time Seen by Provider: 08:15 Initial Comments Patient presents to the ED today with a two day history of dental pain and swelling around his left incisor and canine. He had an appointment with his dentist yesterday and was diagnosed with abscesses of both teeth and was prescribed Amoxicillin TID. The pain has subsided, however, this morning he awoke and the swelling had traveled to his nasolabial fold as well as under his left eye. He denies any visual changes, but is concerned about the increasing inflammation. Timing/Duration: abrupt, yesterday Severity: mild Location: eye (L), nose, mouth, facial, dental Prearrival Treatment: prescription meds Presenting Symptoms/Injuries: facial swelling and dental pain Modifying Factors: Improves With Other (Pain has subsided since the start of antibiotics) Associated Symptoms: facial pain/swelling, tooth pain (GRAYSON MUNGUIA STUDENT) Allergies and Home Medications Allergies Coded Allergies: No Known Drug Allergies (Unverified , 03/27/19) Home Medications Cephalexin 500 Mg Capsule, 500 MG PO TID Prescribed by: JAMAL ROCHE on 12/01/17 1635 Hydrocodone Bit/Acetaminophen 1 Each Tablet, 1 EACH PO Q6H PRN Prescribed by: CAESAR DAVIS on 02/16/131826 Tramadol HCl 50 Mg Tablet, 50 MG PO Q8H PRN for PAIN-MILD TO MODERATE Prescribed by: JAMAL ROCHE on 12/01/17 1635 Trimethoprim/Sulfamethoxazole 1 Ea Tablet, 1 EA PO BID Prescribed by: CAESAR DAVIS on 02/16/131826 Patient Home Medication List Home Medication List Reviewed: Yes (PAVEL BOYD MD) Review of Systems Review of Systems Constitutional: no symptoms reported Eyes: See HPI Ears: No Symptoms Reported Nose: see HPI Mouth: see HPI Throat: no symptoms reported Respiratory: no symptoms reported Cardiovascular: no symptoms reported Gastrointestinal: no symptoms reported Musculoskeletal: no symptoms reported Skin: no symptoms reported Neurological: No Symptoms Reported Hematologic/Lymphatic: No Symptoms Reported Immunological/Allergic: no symptoms reported (GRAYSON MUNGUIA) Constitutional: No chills, No fever Eyes: Denies Pain, Denies Photophobia Mouth: pain, swelling Throat: denies neck stiffness, denies hoarse, denies aphonia Respiratory: No cough, No short of breath (PAVEL BOYD MD) Past Qgwmyxw-Ruakbu-Fdnptj Hx Past Med/Social Hx: Reviewed Nursing Past Med/Soc Hx (PAVEL BOYD MD) Patient Social History Alcohol Use: Rarely Uses Recreational Drug Use: No Smoking Status: Current Everyday Smoker Type Used: Cigarettes 2nd Hand Smoke Exposure: Yes Recent Foreign Travel: No Contact w/Someone Who Travel: No Recent Infectious Disease Expo: No (GRAYSON MUNGUIA) Immunizations Up To Date Tetanus Booster (TDap): Less than 5yrs Date of Influenza Vaccine: Feb 26, 2012 (GRAYSON MUNGUIA) Past Medical History Surgeries: Yes (L eye as infant) Respiratory: No Cardiac: No Neurological: No Gastrointestinal: No Musculoskeletal: No Endocrine: No Cancer: No Integumentary: No (GRAYSON MUNGUIA) Family Medical History Reviewed Nursing Family Hx (PAVEL BOYD MD) No Pertinent Family Hx (GRAYSON MUNGUIA) Physical Exam Vital Signs Vital Signs - First Documented 03/27/19 08:00 Temp 36.5 Pulse 88 Resp 13 B/P (MAP) 128/91 (103) Pulse Ox 99 O2 Delivery Room Air (PAVEL BOYD MD) Height, Weight, BMI Height: 5'5.00" Weight: 172lbs. oz. 78.421677oo; 26.00 BMI Method:Stated General Appearance: WD/WN, no apparent distress Eyes: bilateral eye normal inspection, bilateral eye PERRL, bilateral eye EOMI Nose: other (tenderness and swelling in the left nasolabial fold) Mouth/Throat: dental tenderness, maxillary swelling Neck: non-tender, full range of motion, supple, normal inspection Cardiovascular: normal peripheral pulses, regular rate, rhythm, no edema, no gallop, no JVD, no murmur Respiratory: chest non-tender, lungs clear, normal breath sounds, no respiratory distress, no accessory muscle use Gastrointestinal: normal bowel sounds, non tender, soft, no organomegaly, no pulsatile mass Neurologic/Psychiatric: alert, normal mood/affect, oriented x 3 Skin: normal color, warm/dry (GRAYSON MUNGUIA STUDENT) General Appearance: WD/WN, no apparent distress Mouth/Throat: dental tenderness, maxillary swelling; No trismus, No uvula swelling Neck: full range of motion, supple Cardiovascular: regular rate, rhythm, no murmur Respiratory: lungs clear, normal breath sounds Neurologic/Psychiatric: alert, oriented x 3 Skin: normal color, warm/dry (PAVEL BOYD MD) Procedures/Interventions Suture Size: 4-0 (GRAYSON MUNGUIA STUDENT) Progress/Results/Core Measures Results/Orders My Orders Orders - PAVEL BOYD MD Dexamethasone Injection (Decadron Inject (03/27/19 08:45) Ceftriaxone For Im Use (Rocephin For Im (03/27/19 08:45) Lidocaine 1% Inj 20 Ml (Xylocaine 1% Inj (03/27/19 08:45) (PAVEL BOYD MD) Vital Signs/I&O 03/27/19 08:00 Temp 36.5 Pulse 88 Resp 13 B/P (MAP) 128/91 (103) Pulse Ox 99 O2 Delivery Room Air (PAVEL BOYD MD) Blood Pressure Mean: 103 POS Progress Progress Note : Progress Note I have seen and evaluated the patient and agree with above except as indicated. I have directed the plan of care. Patient is here with the increasing redness and swelling around the upper incisor canine tooth with swelling to the face above that area. It has not encroached on the eye yet. He has recently started amoxicillin. Evaluation as above. Plan is for Rocephin 1 g IM and Decadron 10 mg IM. His dentist called during the evaluation and will also increase amoxicillin briefly and follow-up with him either later today or tomorrow. Discharged home with return precautions. Patient verbalize understanding instructions and agreement with plan. (PAVEL BOYD MD) Departure Impression Primary Impression: Dental abscess Additional Impression: Facial cellulitis Disposition: 01 HOME, SELF-CARE Condition: Stable Departure-Patient Inst. Decision time for Depature: 08:56 (PAVEL BOYD MD) Referrals: MARLEEN VALLE MD (PCP/Family) Primary Care Physician Patient Instructions: Tooth Abscess (DC), Cellulitis (Skin Infection), Adult (DC) Add. Discharge Instructions: All discharge instructions reviewed with patient and/or family. Voiced understanding. Take medications as instructed by her dentist. You may continue Tylenol and ibuprofen as needed for pain or fever. Drink plenty of fluids. Follow up with your dentist today or tomorrow for recheck and further evaluat ion. Return in the morning or earlier if you're having persistent or worsening pain, worsening swelling, fevers, chills, difficulty with opening her mouth, swallowing or breathing or other concerns as needed. GRAYSON MUNGUIA STUDENT Mar 27, 2019 08:27 PAVEL HYLTON MD Mar 27, 2019 08:47 POS
[2019-03-27] MEDS ORDERED: DEXAMETHASONE 10 MG/ML (DECADRON) 1 ML VIAL IM ONE (08:45)
[2019-03-27] MEDS ORDERED: LIDOCAINE 1% INJ 20 ML 20 ML VIAL INJ ONE (08:45)
[2019-03-27] MEDS ORDERED: cefTRIAXone 1,000 MG/2.86 ml vial (IM ONLY) IM ONE (08:45)
[2019-03-27 09:13] VITALS: BP 128/91
== END 2019-03-27 09:16 | disposition home or self-care (01) ==
LOC: EDUNIT# 07:57 → ER 07:58
DX: K04.7 Periapical abscess without sinus (principal); L03.211 Cellulitis of face; F17.210 Nicotine dependence, cigarettes, uncomplicated
CPT/HCPCS: 99284